=== PATIENT | male | born 1980 | race Caucasian/White ===

== ENCOUNTER → 2022-08-11 | Outpatient (CLI) | payer MEDICAID ==
[2022-08-11 15:24] LABS: BASO # 0.1 10^3/uL (0.0-0.2); BASO % 0.9 % (0.0-1.0); EOS # 0.2 10^3/uL (0.0-0.5); EOS % 3.5 % (0.0-3.0); HEMATOCRIT 51.7 % (42.0-52.0); HEMOGLOBIN 17.5 g/dl (13.5-17.5); LYMPH # 2.2 10^3/uL (1.5-5.0); LYMPH % 31.5 % (24.0-44.0); MEAN CORPUSCULAR HEMOGLOBIN 29.5 pg (27.0-33.0); MEAN CORPUSCULAR HGB CONC 33.8 g/dl (32.0-36.5); MEAN CORPUSCULAR VOLUME 87.2 fl (80.0-96.0); MONO # 0.6 10^3/uL (0.0-0.8); MONO % 8.5 % (2.0-8.0); NEUTROPHILS # 3.8 10^3/uL (1.5-8.5); PLATELET COUNT, AUTOMATED 315 10^3/uL (150-450); RED BLOOD COUNT 5.93 10^6/uL (4.30-6.10); WHITE BLOOD COUNT 6.9 10^3/uL (4.0-10.0)
[2022-08-11 15:54] LABS: ALBUMIN 3.8 G/DL (3.2-5.2); ALKALINE PHOSPHATASE 104 U/L (46-116); ALT/SGPT 117 U/L (7.0-40); AST/SGOT 67 U/L (<34); BILIRUBIN,TOTAL 0.7 MG/DL (0.3-1.2); BLOOD UREA NITROGEN 12 MG/DL (9-23); CALCIUM LEVEL 8.9 MG/DL (8.5-10.1); CARBON DIOXIDE LEVEL 26 MMOL/L (20-31); CHLORIDE LEVEL 104 MMOL/L (98-107); CHOLESTEROL LEVEL 186 MG/DL (<200); CHOLESTEROL RISK RATIO 4.16 (<5); CREATININE FOR GFR 0.86 MG/DL (0.70-1.30); GLOMERULAR FILTRATION RATE > 60.0 (>60); GLUCOSE, FASTING 108 MG/DL (60-100); HDL CHOLESTEROL 44.7 MG/DL (>40); LDL CHOLESTEROL 104.7 MG/DL (<100); NON-HDL-C 141.3 MG/DL; POTASSIUM SERUM 4.1 MMOL/L (3.5-5.1); SODIUM LEVEL 140 MMOL/L (136-145); TOTAL PROTEIN 7.3 G/DL (5.7-8.2); TRIGLYCERIDES LEVEL 183 MG/DL (<150)
[2022-08-11 15:55] LABS: FREE T4 1.16 NG/DL (0.89-1.76); THYROID STIMULATING HORMONE 2.242 uIU/ML (0.55-4.78)
== END ==
LOC: M LAB 14:01
PROVIDERS: ATTEND Student in an Organized Health Care Education/Training Program
DX: Z00.00 Encounter for general adult medical examination without abnormal findings (principal); I10 Essential (primary) hypertension; F41.9 Anxiety disorder, unspecified

== ENCOUNTER → 2022-09-13 | Outpatient (CLI) | payer MEDICAID ==
[2022-09-13 15:08] LABS: BLOOD UREA NITROGEN 12 MG/DL (9-23); CALCIUM LEVEL 9.1 MG/DL (8.5-10.1); CARBON DIOXIDE LEVEL 26 MMOL/L (20-31); CHLORIDE LEVEL 104 MMOL/L (98-107); CREATININE FOR GFR 0.88 MG/DL (0.70-1.30); GLOMERULAR FILTRATION RATE > 60.0 (>60); GLUCOSE, FASTING 119 MG/DL (60-100); POTASSIUM SERUM 4.2 MMOL/L (3.5-5.1); SODIUM LEVEL 136 MMOL/L (136-145)
== END ==
LOC: M LAB 13:53
PROVIDERS: ATTEND Student in an Organized Health Care Education/Training Program
DX: I10 Essential (primary) hypertension (principal); R39.11 Hesitancy of micturition

== ENCOUNTER → 2023-11-02 | Outpatient (CLI) | payer OTHER | LOC: M SLEEP HO 10:57 | PROVIDERS: ATTEND Nurse Practitioner Adult Health | DX: G47.33 Obstructive sleep apnea (adult) (pediatric) (principal) ==

== ENCOUNTER → 2023-11-13 | Outpatient (REF) | payer OTHER, MEDICAID ==
[2023-11-13 17:33] LABS: ALBUMIN 3.9 G/DL (3.2-5.2); ALKALINE PHOSPHATASE 101 U/L (46-116); ALT/SGPT 156 U/L (7.0-40); AST/SGOT 130 U/L (<34); BLOOD UREA NITROGEN 10 MG/DL (9-23); CARBON DIOXIDE LEVEL 28 MMOL/L (20-31); CHLORIDE LEVEL 102 MMOL/L (98-107); CREATININE FOR GFR 0.86 MG/DL (0.70-1.30); GLOMERULAR FILTRATION RATE > 60.0 (>60); GLUCOSE, FASTING 102 MG/DL (60-100); MAGNESIUM LEVEL 2.2 MG/DL (1.8-2.4); POTASSIUM SERUM 4.3 MMOL/L (3.5-5.1); SODIUM LEVEL 135 MMOL/L (136-145); TOTAL PROTEIN 7.7 G/DL (5.7-8.2)
[2023-11-13 17:54] LABS: FOLATE 13.16 NG/ML (>5.4)
[2023-11-13 18:01] LABS: BASO # 0.1 10^3/uL (0.0-0.2); BASO % 0.8 % (0.0-1.0); EOS # 0.4 10^3/uL (0.0-0.5); EOS % 4.3 % (0.0-3.0); HEMATOCRIT 53.2 % (42.0-52.0); HEMOGLOBIN 17.6 g/dl (13.5-17.5); LYMPH # 2.1 10^3/uL (1.5-5.0); LYMPH % 23.9 % (24.0-44.0); MEAN CORPUSCULAR HEMOGLOBIN 29.8 pg (27.0-33.0); MEAN CORPUSCULAR HGB CONC 33.1 g/dl (32.0-36.5); MONO # 0.8 10^3/uL (0.0-0.8); MONO % 9.2 % (2.0-8.0); NEUTROPHILS # 5.4 10^3/uL (1.5-8.5); NEUTROPHILS % 60.9 % (36.0-66.0); PLATELET COUNT, AUTOMATED 286 10^3/uL (150-450); RED BLOOD COUNT 5.91 10^6/uL (4.30-6.10); WHITE BLOOD COUNT 8.8 10^3/uL (4.0-10.0)
== END ==
LOC: M SFHCLERA 11:35
PROVIDERS: ATTEND Physician Assistant
DX: F10.10 Alcohol abuse, uncomplicated (principal)

== ENCOUNTER 2024-01-27 09:05 | Emergency (ER) | payer MEDICAID, OTHER ==
[~2024-01-27] VITALS: Ht 185.4 cm; Wt 139.3 kg
[2024-01-27] MEDS ORDERED: METO200T15 PO (09:16)
[2024-01-27] MEDS ORDERED: OMEP40CA5 PO (09:16)
[2024-01-27] MEDS ORDERED: GABA-1172 PO (09:16)
[2024-01-27] MEDS ORDERED: SUCR1TAB56 PO (09:16)
[2024-01-27 09:59] LABS: BASO # 0.1 10^3/uL (0.0-0.2); BASO % 0.9 % (0.0-1.0); EOS # 0.3 10^3/uL (0.0-0.5); EOS % 2.9 % (0.0-3.0); HEMOGLOBIN 17.4 g/dl (13.5-17.5); LYMPH # 1.9 10^3/uL (1.5-5.0); LYMPH % 20.6 % (24.0-44.0); MEAN CORPUSCULAR HEMOGLOBIN 30.3 pg (27.0-33.0); MEAN CORPUSCULAR HGB CONC 34.1 g/dl (32.0-36.5); MEAN CORPUSCULAR VOLUME 88.7 fl (80.0-96.0); MONO # 0.7 10^3/uL (0.0-0.8); MONO % 8.1 % (2.0-8.0); NEUTROPHILS % 66.5 % (36.0-66.0); PLATELET COUNT, AUTOMATED 314 10^3/uL (150-450); RED BLOOD COUNT 5.75 10^6/uL (4.30-6.10)
[2024-01-27] MEDS: MULTIVITAMINS/MINERALS THERAP 1 TAB PO SCH (10:02)
[2024-01-27] MEDS: FOLIC ACID 1MG TAB PO SCH (10:02)
[2024-01-27] MEDS: THIAMINE 100 MG TAB PO SCH (10:02)
[2024-01-27] MEDS: LORazepam 2 MG TAB PO PRN (10:11)
[2024-01-27 10:19] LABS: INR 1.06; PROTHROMBIN TIME 13.4 SECONDS (12.5-14.5)
[2024-01-27 10:58] LABS: CK-MB VALUE MASS < 1.0 NG/ML (<3.6); CPK CREATINE PHOSPHOKINASE 110 U/L (46-171)
[2024-01-27 11:09] LABS: HEMOGLOBIN A1c 7.5 % (4.0-6.0)
[2024-01-27 11:24] LABS: CK-MB VALUE MASS < 1.0 NG/ML (<3.6)
[2024-01-27 11:55] LABS: LIPASE 50 U/L (12-53)
[2024-01-27 11:59] LABS: ALBUMIN 3.2 G/DL (3.2-5.2); ALKALINE PHOSPHATASE 128 U/L (46-116); ALT/SGPT 152 U/L (7.0-40); AST/SGOT 162 U/L (<34); BILIRUBIN,DIRECT 0.2 MG/DL (<0.4); BILIRUBIN,TOTAL 0.6 MG/DL (0.3-1.2); BLOOD UREA NITROGEN 8 MG/DL (9-23); CARBON DIOXIDE LEVEL 21 MMOL/L (20-31); CHLORIDE LEVEL 105 MMOL/L (98-107); CPK CREATINE PHOSPHOKINASE 90 U/L (46-171); CREATININE FOR GFR 0.59 MG/DL (0.70-1.30); GLOMERULAR FILTRATION RATE > 60.0 (>60); GLUCOSE, FASTING 204 MG/DL (60-100); MAGNESIUM LEVEL 2.2 MG/DL (1.8-2.4); MB/CK RELATIVE INDEX 1.11 (< OR =4); POTASSIUM SERUM 4.9 MMOL/L (3.5-5.1); SODIUM LEVEL 133 MMOL/L (136-145); TOTAL PROTEIN 7.3 G/DL (5.7-8.2)
[2024-01-27] MEDS ORDERED: HOME MED LIST COMPLETE! XX SCH ×2 (12:15)
[2024-01-27] MEDS ORDERED: METF500T13 PO (13:47)
[2024-01-27 14:10] VITALS: BP 155/97; TEMP 98.3; O2SAT 96
== END 2024-01-27 14:21 | disposition home or self-care (01) ==
LOC: M ED 09:05
DX: E11.9 Type 2 diabetes mellitus without complications (principal); I10 Essential (primary) hypertension; F10.130 Alcohol abuse with withdrawal, uncomplicated; Z91.199 Patient's noncompliance with other medical treatment and regimen due to unspecified reason; R00.0 Tachycardia, unspecified; I45.81 Long QT syndrome; F41.9 Anxiety disorder, unspecified; Z79.84 Long term (current) use of oral hypoglycemic drugs; Z79.899 Other long term (current) drug therapy; Z91.040 Latex allergy status; Z91.010 Allergy to peanuts

== ENCOUNTER 2024-02-03 11:41 | Observation (INO) | payer OTHER ==
[~2024-02-03] VITALS: Ht 185.4 cm; Wt 136.0 kg
[~2024-02-03 11:41] MED LIST: GABA-1172 PO; METF500T13 PO; METO200T15 PO; OMEP40CA5 PO; SUCR1TAB56 PO
[2024-02-03 13:25] LABS: BASO # 0.1 10^3/uL (0.0-0.2); BASO % 0.8 % (0.0-1.0); EOS # 0.3 10^3/uL (0.0-0.5); EOS % 3.3 % (0.0-3.0); HEMATOCRIT 47.2 % (42.0-52.0); HEMOGLOBIN 16.3 g/dl (13.5-17.5); LYMPH # 1.4 10^3/uL (1.5-5.0); LYMPH % 17.3 % (24.0-44.0); MEAN CORPUSCULAR HEMOGLOBIN 30.4 pg (27.0-33.0); MEAN CORPUSCULAR HGB CONC 34.5 g/dl (32.0-36.5); MEAN CORPUSCULAR VOLUME 88.1 fl (80.0-96.0); MONO # 0.6 10^3/uL (0.0-0.8); MONO % 7.7 % (2.0-8.0); NEUTROPHILS # 5.5 10^3/uL (1.5-8.5); NEUTROPHILS % 70.1 % (36.0-66.0); PLATELET COUNT, AUTOMATED 282 10^3/uL (150-450); RED BLOOD COUNT 5.36 10^6/uL (4.30-6.10); WHITE BLOOD COUNT 7.9 10^3/uL (4.0-10.0)
[2024-02-03 13:53] LABS: CPK CREATINE PHOSPHOKINASE 187 U/L (46-171)
[2024-02-03 13:54] LABS: ALBUMIN 3.5 G/DL (3.2-5.2); ALKALINE PHOSPHATASE 104 U/L (40-129); ALT/SGPT 215 U/L (7.0-40); AST/SGOT 236 U/L (<34); BILIRUBIN,DIRECT 0.4 MG/DL (<0.4); BILIRUBIN,TOTAL 0.9 MG/DL (0.3-1.2); BLOOD UREA NITROGEN 12 MG/DL (9-23); CARBON DIOXIDE LEVEL 25 MMOL/L (20-31); CHLORIDE LEVEL 102 MMOL/L (98-107); CK-MB VALUE MASS 1.2 NG/ML (<3.6); CREATININE FOR GFR 0.67 MG/DL (0.70-1.30); GLOMERULAR FILTRATION RATE > 60.0 (>60); GLUCOSE, FASTING 126 MG/DL (60-100); MAGNESIUM LEVEL 2.1 MG/DL (1.8-2.4); MB/CK RELATIVE INDEX 0.64 (< OR =4); POTASSIUM SERUM 3.9 MMOL/L (3.5-5.1); SODIUM LEVEL 134 MMOL/L (136-145); TOTAL PROTEIN 7.6 G/DL (5.7-8.2)
[2024-02-03 13:57] LABS: THYROID STIMULATING HORMONE 2.216 uIU/ML (0.55-4.78)
[2024-02-03 13:58] LABS: FREE T4 1.57 NG/DL (0.89-1.76)
[2024-02-03 15:24] LABS: CK-MB VALUE MASS < 1.0 NG/ML (<3.6)
[2024-02-03 15:25] LABS: CPK CREATINE PHOSPHOKINASE 162 U/L (46-171); MB/CK RELATIVE INDEX 0.61 (< OR =4)
[2024-02-03] MEDS ORDERED: METF-839 PO (16:37)
[2024-02-03 16:39] LABS: ETHYL ALCOHOL (ETHANOL) 0.004 % (0.000-0.010)
[2024-02-03] MEDS ORDERED: HOME MED LIST COMPLETE! XX SCH (16:40)
[2024-02-03] MEDS: METOPROLOL TART 50 MG TAB PO ONE (17:10)
[2024-02-03 17:28] LABS: AMPHETAMINES LEVEL URINE NEGATIVE (NEGATIVE); BARBITURATES URINE NEGATIVE (NEGATIVE); BENZODIAZEPINES URINE NEGATIVE (NEGATIVE); COCAINE METABOLITE URINE NEGATIVE (NEGATIVE); METHADONE URINE NEGATIVE (NEGATIVE)
[2024-02-03 17:29] LABS: OPIATES URINE NEGATIVE (NEGATIVE); PHENCYCLIDINE URINE NEGATIVE (NEGATIVE)
[2024-02-03 17:41] LABS: CANNABINOIDS URINE POSITIVE (NEGATIVE)
[2024-02-03] MEDS: GABAPENTIN 300 MG CAP PO ONE (17:53)
[2024-02-03] MEDS ORDERED: LORazepam 2 MG/ML 1ML VIAL IV PRN (19:40)
[2024-02-03] MEDS: FOLIC ACID 1MG TAB PO SCH (19:56)
[2024-02-03] MEDS: LORazepam 2 MG TAB PO PRN (19:57)
[2024-02-03] MEDS: MULTIVITAMINS/MINERALS THERAP 1 TAB PO SCH (19:57)
[2024-02-03] MEDS: THIAMINE 100 MG TAB PO SCH (19:57)
[2024-02-03 22:22] VITALS: BP 149/104; TEMP 97.9; O2SAT 94
[2024-02-03] MEDS: RAMELTEON 8 MG TAB (ROZEREM) PO ONE (23:34)
[2024-02-04 05:51] LABS: HEMATOCRIT 44.9 % (42.0-52.0); HEMOGLOBIN 14.9 g/dl (13.5-17.5); MEAN CORPUSCULAR HEMOGLOBIN 29.8 pg (27.0-33.0); MEAN CORPUSCULAR HGB CONC 33.2 g/dl (32.0-36.5); MEAN CORPUSCULAR VOLUME 89.8 fl (80.0-96.0); PLATELET COUNT, AUTOMATED 254 10^3/uL (150-450); WHITE BLOOD COUNT 7.7 10^3/uL (4.0-10.0)
[2024-02-04 06:22] LABS: ALBUMIN 3.1 G/DL (3.2-5.2); ALKALINE PHOSPHATASE 93 U/L (40-129); ALT/SGPT 198 U/L (7.0-40); AST/SGOT 214 U/L (<34); BLOOD UREA NITROGEN 11 MG/DL (9-23); CALCIUM LEVEL 9.4 MG/DL (8.5-10.1); CARBON DIOXIDE LEVEL 27 MMOL/L (20-31); CHLORIDE LEVEL 103 MMOL/L (98-107); CREATININE FOR GFR 0.85 MG/DL (0.70-1.30); GLOMERULAR FILTRATION RATE > 60.0 (>60); GLUCOSE, FASTING 98 MG/DL (60-100); POTASSIUM SERUM 3.7 MMOL/L (3.5-5.1); SODIUM LEVEL 137 MMOL/L (136-145); TOTAL PROTEIN 6.9 G/DL (5.7-8.2)
[2024-02-04 06:23] VITALS: BP 149/104; TEMP 97.7; O2SAT 95
[2024-02-04] MEDS: ENOXAPARIN 40MG/0.4ML SYRINGE (J1650 PER 10MG) SC SCH (08:41)
[2024-02-04] MEDS: GABAPENTIN 300 MG CAP PO SCH (10:55)
[2024-02-04 10:56] VITALS: BP 149/114
[2024-02-04] MEDS: METOPROLOL SUCC (TopROL XL) 100MG *XL* TAB PO SCH (10:56)
[2024-02-04] MEDS: SUCRALFATE 1 GM TAB PO SCH (10:56)
[2024-02-04] MEDS: FLUZONE VACCINE TRIVALENT PF(2024-25) 0.5ML SYRINGE IM.IMMUN ONE (11:05)
[2024-02-04 12:00] VITALS: BP 142/98; TEMP 97.7; O2SAT 97
[2024-02-04] MEDS ORDERED: METO1TAB33 PO (13:33)
[2024-02-04] MEDS ORDERED: Multivitamins PO (13:33)
[2024-02-04] MEDS ORDERED: FOLI1TAB11 PO (13:33)
[2024-02-04] MEDS ORDERED: THIA100TA PO (13:33)
[2024-02-04] MEDS ORDERED: FLEC50HA PO (14:04)
[2024-02-05] MEDS ORDERED: SUCRALFATE 1 GM TAB PO SCH (09:00)
== END 2024-02-04 15:00 | disposition home or self-care (01) ==
LOC: M ED 11:41 → M ED INP 11:42 → M MSPAV 22:16
PROVIDERS: ADMIT Student in an Organized Health Care Education/Training Program; ATTEND Student in an Organized Health Care Education/Training Program
DX: I47.10 Supraventricular tachycardia, unspecified (principal); I49.3 Ventricular premature depolarization; R79.89 Other specified abnormal findings of blood chemistry; R55 Syncope and collapse; I10 Essential (primary) hypertension; E66.9 Obesity, unspecified; R73.03 Prediabetes; R06.02 Shortness of breath; F41.9 Anxiety disorder, unspecified; F10.90 Alcohol use, unspecified, uncomplicated; Z91.018 Allergy to other foods; Z91.040 Latex allergy status; Z91.048 Other nonmedicinal substance allergy status; Z79.899 Other long term (current) drug therapy; Z79.84 Long term (current) use of oral hypoglycemic drugs; Z23 Encounter for immunization

== ENCOUNTER 2024-05-03 14:49 | Inpatient (IN) | payer MEDICAID, OTHER ==
[~2024-05-03] VITALS: Ht 185.4 cm; Wt 136.7 kg
[~2024-05-03 14:49] MED LIST changes: +FLEC50HA PO; +FOLI1TAB11 PO; +METF-839 PO; +METO1TAB33 PO; +Multivitamins PO; +THIA100TA PO
[2024-05-03 16:16] LABS: BASO # 0.1 10^3/uL (0.0-0.2); BASO % 1.1 % (0.0-1.0); EOS # 0.3 10^3/uL (0.0-0.5); EOS % 4.7 % (0.0-3.0); HEMATOCRIT 48.2 % (42.0-52.0); HEMOGLOBIN 16.8 g/dl (13.5-17.5); LYMPH # 1.9 10^3/uL (1.5-5.0); LYMPH % 29.4 % (24.0-44.0); MEAN CORPUSCULAR HEMOGLOBIN 29.9 pg (27.0-33.0); MEAN CORPUSCULAR HGB CONC 34.9 g/dl (32.0-36.5); MEAN CORPUSCULAR VOLUME 85.9 fl (80.0-96.0); MONO # 0.6 10^3/uL (0.0-0.8); MONO % 8.8 % (2.0-8.0); NEUTROPHILS # 3.7 10^3/uL (1.5-8.5); NEUTROPHILS % 55.4 % (36.0-66.0); PLATELET COUNT, AUTOMATED 279 10^3/uL (150-450); RED BLOOD COUNT 5.61 10^6/uL (4.30-6.10); WHITE BLOOD COUNT 6.6 10^3/uL (4.0-10.0)
[2024-05-03 16:34] LABS: PARTIAL THROMBOPLASTIN TIME 27.1 SECONDS (24.8-34.2); PROTHROMBIN TIME 13.5 SECONDS (12.5-14.5)
[2024-05-03 16:41] LABS: ETHYL ALCOHOL (ETHANOL) 0.088 % (0.000-0.010)
[2024-05-03 16:49] LABS: ALBUMIN 3.4 G/DL (3.2-5.2); ALKALINE PHOSPHATASE 112 U/L (40-129); ALT/SGPT 221 U/L (7.0-40); AST/SGOT 185 U/L (<34); BILIRUBIN,DIRECT 0.3 MG/DL (<0.4); BILIRUBIN,TOTAL 0.8 MG/DL (0.3-1.2); BLOOD UREA NITROGEN < 5 MG/DL (9-23); CALCIUM LEVEL 8.6 MG/DL (8.5-10.1); CARBON DIOXIDE LEVEL 23 MMOL/L (20-31); CHLORIDE LEVEL 99 MMOL/L (98-107); CREATININE FOR GFR 0.63 MG/DL (0.70-1.30); GLOMERULAR FILTRATION RATE > 60.0 (>60); GLUCOSE, FASTING 189 MG/DL (60-100); POTASSIUM SERUM 3.7 MMOL/L (3.5-5.1); SODIUM LEVEL 136 MMOL/L (136-145); TOTAL PROTEIN 7.8 G/DL (5.7-8.2)
[2024-05-03] MEDS: LORazepam 2 MG TAB PO PRN ×2 (17:24→22:22)
[2024-05-03] MEDS: ONDANSETRON 4MG 2ML VIAL IV PRN (17:24)
[2024-05-03] MEDS ORDERED: ISOVUE-370 76% 100ML VIAL As Ordered ONE (17:58)
[2024-05-03] MEDS ORDERED: LISI10TA22 PO (20:09)
[2024-05-03] MEDS ORDERED: FOLI1TAB11 PO (20:10)
[2024-05-03] MEDS ORDERED: HOME MED LIST COMPLETE! XX SCH (20:15)
[2024-05-03] MEDS: THIAMINE 100 MG TAB PO SCH (20:59)
[2024-05-03 21:06] LABS: MAGNESIUM LEVEL 2.2 MG/DL (1.8-2.4)
[2024-05-03] MEDS ORDERED: ONDANSETRON 4MG 2ML VIAL IV PRN (21:35)
[2024-05-03] MEDS ORDERED: chlordiazePOXIDE 25 MG CAP PO SCH (22:35)
[2024-05-03] MEDS ORDERED: PILL CUTTER 1 EACH XX PRN (23:15)
[2024-05-03] MEDS: PANTOPRAZOLE 40MG VIAL IV ONE (23:59)
[2024-05-03] MEDS: LR 1,000 ML IV ONE (23:59)
[2024-05-03] MEDS: LORazepam 1 MG TAB PO SCH (23:59)
[2024-05-04 06:51] LABS: HEMATOCRIT 48.3 % (42.0-52.0); HEMOGLOBIN 16.4 g/dl (13.5-17.5); MEAN CORPUSCULAR HEMOGLOBIN 29.3 pg (27.0-33.0); MEAN CORPUSCULAR VOLUME 86.4 fl (80.0-96.0); PLATELET COUNT, AUTOMATED 237 10^3/uL (150-450); RED BLOOD COUNT 5.59 10^6/uL (4.30-6.10); WHITE BLOOD COUNT 7.2 10^3/uL (4.0-10.0)
[2024-05-04 07:04] LABS: ALBUMIN 3.1 G/DL (3.2-5.2); ALKALINE PHOSPHATASE 106 U/L (40-129); ALT/SGPT 189 U/L (7.0-40); AST/SGOT 152 U/L (<34); BILIRUBIN,TOTAL 1.5 MG/DL (0.3-1.2); BLOOD UREA NITROGEN 8 MG/DL (9-23); CALCIUM LEVEL 9.1 MG/DL (8.5-10.1); CARBON DIOXIDE LEVEL 29 MMOL/L (20-31); CHLORIDE LEVEL 101 MMOL/L (98-107); CREATININE FOR GFR 0.77 MG/DL (0.70-1.30); GLOMERULAR FILTRATION RATE > 60.0 (>60); GLUCOSE, FASTING 125 MG/DL (60-100); POTASSIUM SERUM 3.9 MMOL/L (3.5-5.1); SODIUM LEVEL 139 MMOL/L (136-145)
[2024-05-04] MEDS ORDERED: KETOROLAC 30 MG/ML 1ML VIAL IV PRN (07:45)
[2024-05-04] MEDS: SUCRALFATE 1 GM TAB PO SCH (08:12)
[2024-05-04] MEDS: MULTIVITAMINS/MINERALS THERAP 1 TAB PO SCH (08:13)
[2024-05-04] MEDS: PANTOPRAZOLE 40MG VIAL IV SCH (08:13)
[2024-05-04] MEDS: THIAMINE 100 MG TAB PO SCH (08:13)
[2024-05-04] MEDS: FOLIC ACID 1MG TAB PO SCH (08:14)
[2024-05-04] MEDS: MAGNESIUM OXIDE 400MG TAB (MAG-OX) PO SCH (08:14)
[2024-05-04] MEDS: ENOXAPARIN 40MG/0.4ML SYRINGE (J1650 PER 10MG) SC SCH (08:14)
[2024-05-04] MEDS ORDERED: FOLIC ACID 1MG TAB PO SCH (09:00)
[2024-05-04] MEDS ORDERED: MULTIVITAMINS/MINERALS THERAP 1 TAB PO SCH (09:00)
[2024-05-04] MEDS ORDERED: PANTOPRAZOLE 40MG VIAL IV SCH (09:00)
[2024-05-04] MEDS ORDERED: THIAMINE 200MG 2ML VIAL IM SCH (09:00)
[2024-05-04] MEDS ORDERED: THIAMINE 200MG 2ML VIAL IV SCH (09:00)
[2024-05-04] MEDS: METOPROLOL SUCC (TopROL XL) 100MG *XL* TAB PO SCH (12:17)
[2024-05-04] MEDS: GABAPENTIN 300 MG CAP PO SCH (16:31)
[2024-05-04] MEDS ORDERED: DEXTROSE 50% 50ML SYRINGE IV PRN (19:40)
[2024-05-04] MEDS ORDERED: GLUCAGON INJ 1MG VIAL SC PRN (19:40)
[2024-05-04] MEDS ORDERED: GLUCOSE 4 GM CHEW PO PRN (19:40)
[2024-05-04] MEDS: INSULIN LISPRO (NovoLOG) PER UNIT SC SCH (20:30)
[2024-05-05] MEDS: LORazepam 1 MG TAB PO SCH (00:09)
[2024-05-05 07:07] LABS: BASO # 0.1 10^3/uL (0.0-0.2); BASO % 0.7 % (0.0-1.0); EOS # 0.5 10^3/uL (0.0-0.5); EOS % 6.6 % (0.0-3.0); HEMATOCRIT 49.7 % (42.0-52.0); HEMOGLOBIN 16.8 g/dl (13.5-17.5); LYMPH % 26.5 % (24.0-44.0); MEAN CORPUSCULAR HEMOGLOBIN 29.5 pg (27.0-33.0); MEAN CORPUSCULAR HGB CONC 33.8 g/dl (32.0-36.5); MEAN CORPUSCULAR VOLUME 87.3 fl (80.0-96.0); MONO # 0.7 10^3/uL (0.0-0.8); MONO % 8.7 % (2.0-8.0); NEUTROPHILS # 4.3 10^3/uL (1.5-8.5); PLATELET COUNT, AUTOMATED 239 10^3/uL (150-450); RED BLOOD COUNT 5.69 10^6/uL (4.30-6.10); WHITE BLOOD COUNT 7.6 10^3/uL (4.0-10.0)
[2024-05-05 07:37] LABS: ALBUMIN 3.2 G/DL (3.2-5.2); ALKALINE PHOSPHATASE 108 U/L (40-129); ALT/SGPT 157 U/L (7.0-40); AST/SGOT 116 U/L (<34); BILIRUBIN,TOTAL 1.6 MG/DL (0.3-1.2); BLOOD UREA NITROGEN 12 MG/DL (9-23); CALCIUM LEVEL 9.2 MG/DL (8.5-10.1); CARBON DIOXIDE LEVEL 27 MMOL/L (20-31); CHLORIDE LEVEL 100 MMOL/L (98-107); CREATININE FOR GFR 0.84 MG/DL (0.70-1.30); GLOMERULAR FILTRATION RATE > 60.0 (>60); GLUCOSE, FASTING 120 MG/DL (60-100); MAGNESIUM LEVEL 2.4 MG/DL (1.8-2.4); POTASSIUM SERUM 4.1 MMOL/L (3.5-5.1); SODIUM LEVEL 137 MMOL/L (136-145); TOTAL PROTEIN 7.2 G/DL (5.7-8.2)
[2024-05-05] MEDS: INSULIN LISPRO (NovoLOG) PER UNIT SC SCH (08:00)
[2024-05-05 14:20] VITALS: BP 138/92; TEMP 97.9; O2SAT 95
[2024-05-05 19:43] VITALS: BP 120/76; TEMP 99; O2SAT 96
[2024-05-05 22:12] VITALS: BP 120/76
[2024-05-06] MEDS: LORazepam 1 MG TAB PO SCH (02:13)
[2024-05-06 02:19] VITALS: BP 140/90; TEMP 98.3; O2SAT 100
[2024-05-06 06:27] VITALS: BP 139/87; TEMP 98.3; O2SAT 96
[2024-05-06 06:38] VITALS: BP 139/87
[2024-05-06 07:19] LABS: BASO # 0.1 10^3/uL (0.0-0.2); BASO % 0.7 % (0.0-1.0); EOS # 0.6 10^3/uL (0.0-0.5); HEMOGLOBIN 16.1 g/dl (13.5-17.5); LYMPH # 1.9 10^3/uL (1.5-5.0); LYMPH % 26.2 % (24.0-44.0); MEAN CORPUSCULAR HEMOGLOBIN 29.5 pg (27.0-33.0); MEAN CORPUSCULAR HGB CONC 33.5 g/dl (32.0-36.5); MEAN CORPUSCULAR VOLUME 87.9 fl (80.0-96.0); MONO # 0.6 10^3/uL (0.0-0.8); MONO % 7.9 % (2.0-8.0); NEUTROPHILS # 4.1 10^3/uL (1.5-8.5); NEUTROPHILS % 56.8 % (36.0-66.0); PLATELET COUNT, AUTOMATED 225 10^3/uL (150-450); RED BLOOD COUNT 5.46 10^6/uL (4.30-6.10); WHITE BLOOD COUNT 7.2 10^3/uL (4.0-10.0)
[2024-05-06 07:45] LABS: ALBUMIN 3.3 G/DL (3.2-5.2); ALKALINE PHOSPHATASE 108 U/L (40-129); ALT/SGPT 150 U/L (7.0-40); AST/SGOT 136 U/L (<34); BILIRUBIN,TOTAL 1.2 MG/DL (0.3-1.2); BLOOD UREA NITROGEN 15 MG/DL (9-23); CALCIUM LEVEL 8.7 MG/DL (8.5-10.1); CARBON DIOXIDE LEVEL 27 MMOL/L (20-31); CHLORIDE LEVEL 102 MMOL/L (98-107); GLOMERULAR FILTRATION RATE > 60.0 (>60); GLUCOSE, FASTING 119 MG/DL (60-100); MAGNESIUM LEVEL 2.3 MG/DL (1.8-2.4); POTASSIUM SERUM 4.6 MMOL/L (3.5-5.1); SODIUM LEVEL 139 MMOL/L (136-145); TOTAL PROTEIN 7.2 G/DL (5.7-8.2)
[2024-05-06 08:00] VITALS: BP_SYST 117; BP_SYST 135; BP_DIAS 66; BP_DIAS 87; TEMP 98.7; O2SAT 97
[2024-05-06 08:20] VITALS: BP 139/87
[2024-05-06] MEDS ORDERED: LORazepam PO (10:33)
[2024-05-06] MEDS ORDERED: FOLI1TAB11 PO (10:33)
[2024-05-06] MEDS ORDERED: PANT40TA29 PO (10:33)
[2024-05-06] MEDS ORDERED: THIA100TA PO (10:33)
[2024-05-06] MEDS ORDERED: SUCR1TA PO (10:33)
[2024-05-06] MEDS ORDERED: ATIV1TAB10 PO (10:36)
[2024-05-06 13:00] VITALS: BP 150/88; TEMP 98.5; O2SAT 99
[2024-05-07] MEDS ORDERED: LORazepam 0.5 MG TAB PO SCH (06:00)
[2024-05-08] MEDS ORDERED: LORazepam 0.5 MG TAB PO SCH (21:00)
== END 2024-05-06 13:15 | disposition home or self-care (01) | DRG 241 ==
LOC: M ED 14:49 → M ED INP 14:50 → OBSVTOIN 05-05 10:53 → M MS4PR 05-05 14:20
PROVIDERS: ADMIT Student in an Organized Health Care Education/Training Program; ATTEND Internal Medicine Nephrology
DX: K29.20 Alcoholic gastritis without bleeding (principal); Z68.41 Body mass index [BMI] 40.0-44.9, adult; R16.0 Hepatomegaly, not elsewhere classified; E66.01 Morbid (severe) obesity due to excess calories; K70.0 Alcoholic fatty liver; I10 Essential (primary) hypertension; F10.239 Alcohol dependence with withdrawal, unspecified; R73.03 Prediabetes; F12.10 Cannabis abuse, uncomplicated; F41.9 Anxiety disorder, unspecified; Z91.018 Allergy to other foods; Z91.040 Latex allergy status; Z91.048 Other nonmedicinal substance allergy status

== ENCOUNTER 2024-07-27 07:06 | Inpatient (IN) | payer MEDICAID, OTHER ==
[~2024-07-27] VITALS: Ht 185.4 cm; Wt 135.9 kg
[~2024-07-27 07:06] MED LIST changes: +ATIV1TAB10 PO; +LISI10TA22 PO; +LORazepam PO; +PANT40TA29 PO; +SUCR1TA PO
[2024-07-27] MEDS ORDERED: LORazepam 2 MG TAB PO PRN (07:40)
[2024-07-27] MEDS: LORazepam 2 MG/ML 1ML VIAL IV STA ×3 (07:53→10:40)
[2024-07-27 08:00] LABS: HEMATOCRIT 50.4 % (42.0-52.0); HEMOGLOBIN 17.4 g/dl (13.5-17.5); MEAN CORPUSCULAR HEMOGLOBIN 29.5 pg (27.0-33.0); MEAN CORPUSCULAR HGB CONC 34.5 g/dl (32.0-36.5); MEAN CORPUSCULAR VOLUME 85.6 fl (80.0-96.0); PLATELET COUNT, AUTOMATED 301 10^3/uL (150-450); RED BLOOD COUNT 5.89 10^6/uL (4.30-6.10); WHITE BLOOD COUNT 8.4 10^3/uL (4.0-10.0)
[2024-07-27] MEDS ORDERED: SEMA1PEN2 INJ (08:04)
[2024-07-27 08:19] LABS: ETHYL ALCOHOL (ETHANOL) 0.055 % (0.000-0.010)
[2024-07-27 08:21] LABS: ALBUMIN 3.5 G/DL (3.2-5.2); ALKALINE PHOSPHATASE 134 U/L (40-129); ALT/SGPT 98 U/L (7.0-40); AST/SGOT 76 U/L (<34); BILIRUBIN,DIRECT 0.3 MG/DL (<0.4); BILIRUBIN,TOTAL 0.7 MG/DL (0.3-1.2); BLOOD UREA NITROGEN 8 MG/DL (9-23); CARBON DIOXIDE LEVEL 23 MMOL/L (20-31); CHLORIDE LEVEL 99 MMOL/L (98-107); CREATININE FOR GFR 0.62 MG/DL (0.70-1.30); GLOMERULAR FILTRATION RATE > 90.0 (>60); GLUCOSE, FASTING 256 MG/DL (60-100); SALICYLATE LEVEL < 3.0 MG/DL (<30); SODIUM LEVEL 135 MMOL/L (136-145); TOTAL PROTEIN 7.9 G/DL (5.7-8.2)
[2024-07-27 08:23] LABS: THYROID STIMULATING HORMONE 2.245 uIU/ML (0.55-4.78)
[2024-07-27 08:34] LABS: AMPHETAMINES LEVEL URINE NEGATIVE (NEGATIVE); BARBITURATES URINE NEGATIVE (NEGATIVE)
[2024-07-27 08:35] LABS: BENZODIAZEPINES URINE NEGATIVE (NEGATIVE); COCAINE METABOLITE URINE NEGATIVE (NEGATIVE); METHADONE URINE NEGATIVE (NEGATIVE); OPIATES URINE NEGATIVE (NEGATIVE); PHENCYCLIDINE URINE NEGATIVE (NEGATIVE)
[2024-07-27 08:42] LABS: CANNABINOIDS URINE POSITIVE (NEGATIVE)
[2024-07-27] MEDS: MULTIVITAMINS/MINERALS THERAP 1 TAB PO SCH (09:33)
[2024-07-27] MEDS: THIAMINE 100 MG TAB PO SCH (09:34)
[2024-07-27] MEDS: FOLIC ACID 1MG TAB PO SCH (09:34)
[2024-07-27 10:36] LABS: MAGNESIUM LEVEL 2.1 MG/DL (1.8-2.4)
[2024-07-27] MEDS ORDERED: HOME MED LIST COMPLETE! XX SCH (10:40)
[2024-07-27] MEDS ORDERED: DEXTROSE 50% 50ML SYRINGE IV PRN (11:35)
[2024-07-27] MEDS ORDERED: GLUCOSE 4 GM CHEW PO PRN (11:35)
[2024-07-27] MEDS ORDERED: ONDANSETRON 4MG 2ML VIAL IV PRN (11:35)
[2024-07-27] MEDS ORDERED: GLUCAGON INJ 1MG VIAL SC PRN (11:35)
[2024-07-27] MEDS: INSULIN LISPRO (NovoLOG) PER UNIT SC SCH ×2 (12:00→21:00)
[2024-07-27 12:08] LABS: LIPASE 43 U/L (12-53)
[2024-07-27 12:30] LABS: HEPATITIS B SURFACE ANTIGEN NEGATIVE (NEGATIVE)
[2024-07-27] MEDS: PANTOPRAZOLE 40MG VIAL IV SCH (12:38)
[2024-07-27] MEDS: METOPROLOL TART 50 MG TAB PO SCH (12:38)
[2024-07-27] MEDS: NS (Normal Saline) 0.9% 1,000 ML IV SCH (12:39)
[2024-07-27 12:51] LABS: HEPATITIS C VIRUS ABY INDEX 0.05 INDEX (<0.8)
[2024-07-27 12:52] LABS: HEPATITIS B CORE ANTIBODY IGM NEGATIVE (NEGATIVE)
[2024-07-27 12:59] LABS: HEMOGLOBIN A1c 6.4 % (4.0-6.0)
[2024-07-27] MEDS: OXAZEPAM 15MG CAP PO SCH ×2 (14:06→17:32)
[2024-07-27] MEDS: MULTIVITAMIN -ADULT INJECTION 10 ML, THIAMINE INJection 100 MG, FOLIC ACID 1 MG in NS (... IV ONE (14:07)
[2024-07-27 15:07] VITALS: BP 166/102; TEMP 97.6; O2SAT 94
[2024-07-27 15:13] VITALS: BP 166/102
[2024-07-27] MEDS: LORazepam 2 MG TAB PO PRN (15:27)
[2024-07-27 17:40] VITALS: BP 157/108; TEMP 98.9; O2SAT 98
[2024-07-27 19:40] VITALS: BP 151/102; TEMP 98.6; O2SAT 96
[2024-07-27 20:00] VITALS: BP 151/102
[2024-07-28] VITALS (11 sets, daily range): BP systolic 115–146; BP diastolic 73–97; TEMP 98.1–98.9; O2SAT 95–97
[2024-07-28] MEDS: THIAMINE 100 MG TAB PO SCH (00:57)
[2024-07-28 04:58] LABS: HEMATOCRIT 46.3 % (42.0-52.0); HEMOGLOBIN 15.9 g/dl (13.5-17.5); MEAN CORPUSCULAR HEMOGLOBIN 29.8 pg (27.0-33.0); MEAN CORPUSCULAR HGB CONC 34.3 g/dl (32.0-36.5); MEAN CORPUSCULAR VOLUME 86.7 fl (80.0-96.0); PLATELET COUNT, AUTOMATED 232 10^3/uL (150-450); RED BLOOD COUNT 5.34 10^6/uL (4.30-6.10); WHITE BLOOD COUNT 7.8 10^3/uL (4.0-10.0)
[2024-07-28 05:20] LABS: ALBUMIN 3.1 G/DL (3.2-5.2); ALKALINE PHOSPHATASE 115 U/L (40-129); ALT/SGPT 77 U/L (7.0-40); AST/SGOT 56 U/L (<34); BILIRUBIN,TOTAL 1.6 MG/DL (0.3-1.2); BLOOD UREA NITROGEN 13 MG/DL (9-23); CALCIUM LEVEL 8.7 MG/DL (8.5-10.1); CARBON DIOXIDE LEVEL 28 MMOL/L (20-31); CHLORIDE LEVEL 99 MMOL/L (98-107); CREATININE FOR GFR 0.72 MG/DL (0.70-1.30); GLOMERULAR FILTRATION RATE > 90.0 (>60); GLUCOSE, FASTING 133 MG/DL (60-100); POTASSIUM SERUM 4.1 MMOL/L (3.5-5.1); SODIUM LEVEL 135 MMOL/L (136-145); TOTAL PROTEIN 6.8 G/DL (5.7-8.2)
[2024-07-28] MEDS: METOPROLOL SUCC (TopROL XL) 100MG *XL* TAB PO SCH (08:42)
[2024-07-28] MEDS: MULTIVITAMINS/MINERALS THERAP 1 TAB PO SCH (08:43)
[2024-07-28] MEDS: FOLIC ACID 1MG TAB PO SCH (08:43)
[2024-07-28] MEDS: ENOXAPARIN 40MG/0.4ML SYRINGE (J1650 PER 10MG) SC SCH (08:44)
[2024-07-28] MEDS: OXAZEPAM 15MG CAP PO SCH (14:22)
[2024-07-29] VITALS (7 sets, daily range): BP systolic 125–139; BP diastolic 83–95; TEMP 97.5–98.9; O2SAT 95–97
[2024-07-29 05:48] LABS: BASO # 0.1 10^3/uL (0.0-0.2); BASO % 1.1 % (0.0-1.0); EOS # 0.5 10^3/uL (0.0-0.5); HEMATOCRIT 46.1 % (42.0-52.0); HEMOGLOBIN 15.5 g/dl (13.5-17.5); LYMPH # 1.6 10^3/uL (1.5-5.0); LYMPH % 22.4 % (24.0-44.0); MEAN CORPUSCULAR HEMOGLOBIN 29.5 pg (27.0-33.0); MEAN CORPUSCULAR HGB CONC 33.6 g/dl (32.0-36.5); MEAN CORPUSCULAR VOLUME 87.6 fl (80.0-96.0); MONO # 0.5 10^3/uL (0.0-0.8); NEUTROPHILS # 4.5 10^3/uL (1.5-8.5); NEUTROPHILS % 61.7 % (36.0-66.0); PLATELET COUNT, AUTOMATED 207 10^3/uL (150-450); RED BLOOD COUNT 5.26 10^6/uL (4.30-6.10); WHITE BLOOD COUNT 7.3 10^3/uL (4.0-10.0)
[2024-07-29 06:11] LABS: BLOOD UREA NITROGEN 15 MG/DL (9-23); CALCIUM LEVEL 8.6 MG/DL (8.5-10.1); CARBON DIOXIDE LEVEL 28 MMOL/L (20-31); CHLORIDE LEVEL 102 MMOL/L (98-107); GLOMERULAR FILTRATION RATE > 90.0 (>60); GLUCOSE, FASTING 139 MG/DL (60-100); POTASSIUM SERUM 3.8 MMOL/L (3.5-5.1); SODIUM LEVEL 138 MMOL/L (136-145)
[2024-07-29] MEDS: chlordiazePOXIDE 25 MG CAP PO SCH (09:19)
[2024-07-29] MEDS ORDERED: NALT50TA4 PO (09:39)
[2024-07-29] MEDS ORDERED: CHLO25CA10 PO (09:39)
[2024-07-29] MEDS ORDERED: PROT1TAB2 PO (09:39)
== END 2024-07-29 11:45 | disposition home or self-care (01) | DRG 775 ==
LOC: M ED 07:06 → M ED INP 11:28 → M PCU 14:56
PROVIDERS: ADMIT Internal Medicine; ATTEND Internal Medicine
DX: F10.239 Alcohol dependence with withdrawal, unspecified (principal); E66.01 Morbid (severe) obesity due to excess calories; K76.0 Fatty (change of) liver, not elsewhere classified; I10 Essential (primary) hypertension; E11.9 Type 2 diabetes mellitus without complications; R74.01 Elevation of levels of liver transaminase levels; K29.20 Alcoholic gastritis without bleeding; Z79.899 Other long term (current) drug therapy; Z91.018 Allergy to other foods; Z91.048 Other nonmedicinal substance allergy status; Z91.040 Latex allergy status

== ENCOUNTER 2024-10-17 09:34 | Inpatient (IN) | payer MEDICAID, OTHER ==
[~2024-10-17] VITALS: Ht 182.9 cm; Wt 139.5 kg
[~2024-10-17 09:34] MED LIST changes: +CHLO25CA10 PO; +NALT50TA4 PO; +PROT1TAB2 PO; +SEMA1PEN2 INJ
[2024-10-17 10:19] LABS: PLATELET COUNT, AUTOMATED 262 10^3/uL (150-450)
[2024-10-17] MEDS: FOLIC ACID 1 MG TAB PO SCH (10:25)
[2024-10-17] MEDS: THIAMINE 100 MG TAB PO SCH (10:26)
[2024-10-17] MEDS: MULTIVITAMINS/MINERALS THERAP 1 TAB PO SCH (10:26)
[2024-10-17 10:47] LABS: ETHYL ALCOHOL (ETHANOL) 0.159 % (0.000-0.010)
[2024-10-17 10:48] LABS: SALICYLATE LEVEL < 3.0 MG/DL (<30)
[2024-10-17 10:49] LABS: ALT/SGPT 238 U/L (7.0-40); AST/SGOT 176 U/L (<34); CALCIUM LEVEL 8.7 MG/DL (8.5-10.1); CARBON DIOXIDE LEVEL 23 MMOL/L (20-31); CHLORIDE LEVEL 93 MMOL/L (98-107); CREATININE FOR GFR 0.65 MG/DL (0.70-1.30); GLOMERULAR FILTRATION RATE > 90.0 (>60); POTASSIUM SERUM 3.8 MMOL/L (3.5-5.1); SODIUM LEVEL 132 MMOL/L (136-145)
[2024-10-17] MEDS ORDERED: METF500T13 PO (11:08)
[2024-10-17] MEDS ORDERED: HYDR-3490 PO (11:08)
[2024-10-17 11:36] LABS: AMPHETAMINES LEVEL URINE NEGATIVE (NEGATIVE); BARBITURATES URINE NEGATIVE (NEGATIVE); COCAINE METABOLITE URINE NEGATIVE (NEGATIVE); METHADONE URINE NEGATIVE (NEGATIVE); OPIATES URINE NEGATIVE (NEGATIVE); PHENCYCLIDINE URINE NEGATIVE (NEGATIVE)
[2024-10-17 11:42] LABS: BENZODIAZEPINES URINE POSITIVE (NEGATIVE); CANNABINOIDS URINE POSITIVE (NEGATIVE)
[2024-10-17] MEDS ORDERED: HOME MED LIST COMPLETE! XX SCH (12:50)
[2024-10-17] MEDS ORDERED: GLUCAGON INJ 1 MG VIAL SC PRN (14:45)
[2024-10-17] MEDS ORDERED: DEXTROSE 50% 50 ML SYRINGE IV PRN (14:45)
[2024-10-17] MEDS ORDERED: GLUCOSE 4 GM CHEW PO PRN (14:45)
[2024-10-17] MEDS: OXAZEPAM 15MG CAP PO SCH (15:11)
[2024-10-17] MEDS: GABAPENTIN 300 MG CAP PO SCH (15:38)
[2024-10-17 15:56] LABS: INR 0.96
[2024-10-17] MEDS: INSULIN LISPRO (NovoLOG) PER UNIT SC SCH ×2 (17:30→21:00)
[2024-10-17] MEDS: PANTOPRAZOLE 40MG VIAL IV SCH (18:00)
[2024-10-17] MEDS: OLANZapine 5 MG TAB PO PRN (18:02)
[2024-10-17 18:30] VITALS: BP_SYST 160; BP_SYST 161; BP_DIAS 117; TEMP 98.4; O2SAT 96
[2024-10-17] MEDS: MULTIVITAMIN -ADULT INJECTION 10 ML, THIAMINE INJection 100 MG, FOLIC ACID 1 MG in NS (... IV ONE (19:01)
[2024-10-17] MEDS: **hydrALAZINE HCL** 25 MG TAB PO SCH (19:02)
[2024-10-17] MEDS: ONDANSETRON 4MG 2ML VIAL IV PRN (19:03)
[2024-10-17] MEDS: SYMBICORT 80/4.5MCG INHALER 6GM INH SCH (19:57)
[2024-10-17] MEDS: ALBUTEROL 90 MCG/ACT 8 GM HFA INHALER INH PRN (19:57)
[2024-10-17] MEDS: SUCRALFATE SUSP 1GM/10ML UD PO SCH (20:44)
[2024-10-17] MEDS: HEPARIN SOD 5000 UNITS/ML 1 ML VIAL/SYRINGE SC SCH (20:45)
[2024-10-17] MEDS ORDERED: PANTOPRAZOLE 40MG TAB PO SCH (21:00)
[2024-10-17 21:20] VITALS: BP 158/106; TEMP 98.8; O2SAT 96
[2024-10-17 22:30] VITALS: BP 158/106
[2024-10-18 05:28] VITALS: BP 153/96; TEMP 98.2; O2SAT 96
[2024-10-18 05:58] LABS: BASO # 0.1 10^3/uL (0.0-0.2); BASO % 0.9 % (0.0-1.0); EOS # 0.6 10^3/uL (0.0-0.5); EOS % 7.9 % (0.0-3.0); LYMPH # 2.1 10^3/uL (1.5-5.0); LYMPH % 28.0 % (24.0-44.0); MONO # 0.6 10^3/uL (0.0-0.8); MONO % 7.9 % (2.0-8.0); NEUTROPHILS # 4.1 10^3/uL (1.5-8.5); NEUTROPHILS % 53.9 % (36.0-66.0); PLATELET COUNT, AUTOMATED 226 10^3/uL (150-450)
[2024-10-18 06:00] VITALS: BP 153/107
[2024-10-18 06:18] LABS: ALT/SGPT 187 U/L (7.0-40); AST/SGOT 148 U/L (<34); CALCIUM LEVEL 8.4 MG/DL (8.5-10.1); CARBON DIOXIDE LEVEL 29 MMOL/L (20-31); CHLORIDE LEVEL 97 MMOL/L (98-107); CREATININE FOR GFR 0.86 MG/DL (0.70-1.30); GLOMERULAR FILTRATION RATE > 90.0 (>60); MAGNESIUM LEVEL 2.2 MG/DL (1.8-2.4); POTASSIUM SERUM 4.2 MMOL/L (3.5-5.1); SODIUM LEVEL 137 MMOL/L (136-145)
[2024-10-18] MEDS: ALBUTEROL 90 MCG/ACT 8 GM HFA INHALER INH ONE (07:53)
[2024-10-18] MEDS: METOPROLOL SUCC. 100 MG *XL* TAB PO SCH (08:38)
[2024-10-18 11:52] VITALS: BP 143/92; TEMP 97.9; O2SAT 97
[2024-10-18 12:00] VITALS: BP 143/92
[2024-10-18 14:00] VITALS: BP 147/94
[2024-10-18 19:35] VITALS: BP 132/98; TEMP 98.8; O2SAT 97
[2024-10-19] VITALS (7 sets, daily range): BP systolic 145–158; BP diastolic 90–105; TEMP 97.5–98.2; O2SAT 94–98
[2024-10-19] MEDS: OXAZEPAM 10MG CAP PO SCH (05:33)
[2024-10-19 06:25] LABS: BASO # 0.0 10^3/uL (0.0-0.2); BASO % 0.8 % (0.0-1.0); EOS # 0.4 10^3/uL (0.0-0.5); EOS % 7.9 % (0.0-3.0); LYMPH # 1.4 10^3/uL (1.5-5.0); LYMPH % 26.1 % (24.0-44.0); MONO # 0.5 10^3/uL (0.0-0.8); MONO % 8.6 % (2.0-8.0); NEUTROPHILS # 3.0 10^3/uL (1.5-8.5); NEUTROPHILS % 55.7 % (36.0-66.0); PLATELET COUNT, AUTOMATED 177 10^3/uL (150-450)
[2024-10-19 06:55] LABS: CALCIUM LEVEL 8.5 MG/DL (8.5-10.1); CARBON DIOXIDE LEVEL 25 MMOL/L (20-31); CHLORIDE LEVEL 100 MMOL/L (98-107); CREATININE FOR GFR 0.81 MG/DL (0.70-1.30); GLOMERULAR FILTRATION RATE > 90.0 (>60); POTASSIUM SERUM 3.8 MMOL/L (3.5-5.1); SODIUM LEVEL 138 MMOL/L (136-145)
[2024-10-19] MEDS: FLUTICASONE PROPIONATE 0.05% NASAL SPRAY 16 GM NARES SCH (09:00)
[2024-10-20 00:37] VITALS: BP 159/110; TEMP 97; O2SAT 96
[2024-10-20 04:36] VITALS: BP 155/109; TEMP 98.1; O2SAT 97
[2024-10-20 05:35] LABS: BASO # 0.0 10^3/uL (0.0-0.2); BASO % 0.7 % (0.0-1.0); EOS # 0.4 10^3/uL (0.0-0.5); EOS % 6.8 % (0.0-3.0); LYMPH # 1.6 10^3/uL (1.5-5.0); LYMPH % 25.5 % (24.0-44.0); MONO # 0.5 10^3/uL (0.0-0.8); MONO % 8.5 % (2.0-8.0); NEUTROPHILS # 3.5 10^3/uL (1.5-8.5); NEUTROPHILS % 57.5 % (36.0-66.0); PLATELET COUNT, AUTOMATED 166 10^3/uL (150-450)
[2024-10-20 05:55] LABS: CALCIUM LEVEL 8.6 MG/DL (8.5-10.1); CARBON DIOXIDE LEVEL 24 MMOL/L (20-31); CHLORIDE LEVEL 101 MMOL/L (98-107); CREATININE FOR GFR 0.79 MG/DL (0.70-1.30); GLOMERULAR FILTRATION RATE > 90.0 (>60); POTASSIUM SERUM 3.7 MMOL/L (3.5-5.1); SODIUM LEVEL 140 MMOL/L (136-145)
[2024-10-20 06:53] VITALS: BP 169/122; TEMP 98.1; O2SAT 96
[2024-10-20] MEDS: OXAZEPAM 15MG CAP PO SCH (06:56)
[2024-10-20 08:53] VITALS: BP 178/110
[2024-10-20] MEDS ORDERED: VENTAER INH (10:45)
[2024-10-20] MEDS ORDERED: SUCR1TA PO (10:45)
[2024-10-20] MEDS ORDERED: FLUTISP NARES (10:45)
[2024-10-20] MEDS ORDERED: THERTAB19 PO (10:45)
[2024-10-20] MEDS ORDERED: THIA100T7 PO (10:45)
[2024-10-20] MEDS ORDERED: PANT40TA29 PO (10:45)
[2024-10-20] MEDS ORDERED: LISI10TA22 PO (10:45)
[2024-10-20] MEDS ORDERED: AMLO1TAB24 PO (10:45)
[2024-10-20] MEDS ORDERED: OXAZ15CA4 PO (12:34)
[2024-10-20] MEDS ORDERED: **hydrALAZINE HCL** 25 MG TAB PO SCH (16:00)
== END 2024-10-20 10:51 | disposition left against medical advice (07) | DRG 199 ==
LOC: M ED 09:34 → M ED INP 14:39 → M MSPAV 18:23
PROVIDERS: ADMIT Internal Medicine Nephrology; ATTEND Internal Medicine Nephrology
DX: I16.0 Hypertensive urgency (principal); E11.42 Type 2 diabetes mellitus with diabetic polyneuropathy; K76.0 Fatty (change of) liver, not elsewhere classified; E66.01 Morbid (severe) obesity due to excess calories; Z68.41 Body mass index [BMI] 40.0-44.9, adult; F10.239 Alcohol dependence with withdrawal, unspecified; F41.9 Anxiety disorder, unspecified; R74.01 Elevation of levels of liver transaminase levels; K21.9 Gastro-esophageal reflux disease without esophagitis; R05.9 Cough, unspecified; B97.81 Human metapneumovirus as the cause of diseases classified elsewhere; K29.70 Gastritis, unspecified, without bleeding; G47.33 Obstructive sleep apnea (adult) (pediatric); Z79.84 Long term (current) use of oral hypoglycemic drugs; Z79.899 Other long term (current) drug therapy; Z91.048 Other nonmedicinal substance allergy status; Z91.040 Latex allergy status; Z91.018 Allergy to other foods; I10 Essential (primary) hypertension

== ENCOUNTER 2024-12-10 12:07 | Inpatient (IN) | payer OTHER ==
[~2024-12-10] VITALS: Ht 182.9 cm; Wt 137.1 kg
[2024-12-10] VITALS (9 sets, daily range): BP systolic 138–190; BP diastolic 81–117; TEMP 97–98.2; O2SAT 92–97
[~2024-12-10 12:07] MED LIST changes: +AMLO1TAB24 PO; +FLUTISP NARES; +HYDR-3490 PO; +OXAZ15CA4 PO; +THERTAB19 PO; +THIA100T7 PO; +VENTAER INH
[2024-12-10] MEDS ORDERED: TIRZ2.5P SQ (12:29)
[2024-12-10] MEDS ORDERED: IRBE150T27 PO (12:29)
[2024-12-10 13:01] LABS: BASO # 0.1 10^3/uL (0.0-0.2); BASO % 0.9 % (0.0-1.0); EOS # 0.3 10^3/uL (0.0-0.5); EOS % 3.2 % (0.0-3.0); LYMPH # 3.0 10^3/uL (1.5-5.0); LYMPH % 37.0 % (24.0-44.0); MONO # 0.7 10^3/uL (0.0-0.8); MONO % 9.0 % (2.0-8.0); NEUTROPHILS # 4.0 10^3/uL (1.5-8.5); NEUTROPHILS % 48.9 % (36.0-66.0); PLATELET COUNT, AUTOMATED 241 10^3/uL (150-450)
[2024-12-10 13:08] LABS: ETHYL ALCOHOL (ETHANOL) 0.101 % (0.000-0.010)
[2024-12-10 13:10] LABS: ALT/SGPT 173 U/L (7.0-40); AST/SGOT 102 U/L (<34); CALCIUM LEVEL 9.2 MG/DL (8.5-10.1); CARBON DIOXIDE LEVEL 24 MMOL/L (20-31); CHLORIDE LEVEL 97 MMOL/L (98-107); CREATININE FOR GFR 0.76 MG/DL (0.70-1.30); GLOMERULAR FILTRATION RATE > 90.0 (>60); POTASSIUM SERUM 4.3 MMOL/L (3.5-5.1); SALICYLATE LEVEL < 3.0 MG/DL (<30); SODIUM LEVEL 136 MMOL/L (136-145)
[2024-12-10 13:13] LABS: CPK CREATINE PHOSPHOKINASE 111 U/L (46-171)
[2024-12-10 14:20] LABS: AMPHETAMINES LEVEL URINE NEGATIVE (NEGATIVE); BARBITURATES URINE NEGATIVE (NEGATIVE); BENZODIAZEPINES URINE NEGATIVE (NEGATIVE); COCAINE METABOLITE URINE NEGATIVE (NEGATIVE); METHADONE URINE NEGATIVE (NEGATIVE); OPIATES URINE NEGATIVE (NEGATIVE); PHENCYCLIDINE URINE NEGATIVE (NEGATIVE)
[2024-12-10 14:25] LABS: CANNABINOIDS URINE POSITIVE (NEGATIVE)
[2024-12-10] MEDS: THIAMINE 100 MG TAB PO SCH (14:34)
[2024-12-10] MEDS: FOLIC ACID 1 MG TAB PO SCH (14:34)
[2024-12-10] MEDS ORDERED: DEXTROSE 50% 50 ML SYRINGE IV PRN (15:35)
[2024-12-10] MEDS ORDERED: GLUCAGON INJ 1 MG VIAL SC PRN (15:35)
[2024-12-10] MEDS ORDERED: GLUCOSE 4 GM CHEW PO PRN (15:35)
[2024-12-10 16:08] LABS: INR 0.97
[2024-12-10] MEDS: hydrALAZINE 20 MG/ML 1 ML VIAL IV STA (16:15)
[2024-12-10] MEDS: METOPROLOL 5 MG/5 ML VIAL IV SCH (16:34)
[2024-12-10 16:51] LABS: HEPATITIS C VIRUS ABY INDEX < 0.02 INDEX (<0.8)
[2024-12-10] MEDS ORDERED: hydrALAZINE 20 MG/ML 1 ML VIAL IV PRN (16:55)
[2024-12-10] MEDS ORDERED: METF-838 PO (17:17)
[2024-12-10] MEDS ORDERED: MELA3TAB30 PO (17:17)
[2024-12-10] MEDS ORDERED: MULTTAB61 PO (17:17)
[2024-12-10] MEDS ORDERED: HOME MED LIST COMPLETE! XX SCH (17:20)
[2024-12-10] MEDS: FUROSEMIDE 100 MG/10 ML VIAL IV ONE (17:29)
[2024-12-10] MEDS: NITROGLYCERIN 2% OINT 1 GM *U/D* PKT TOP ONE (17:41)
[2024-12-10 17:51] LABS: ESTIMATED AVERAGE GLUCOSE 197.0 MG/DL (60-110)
[2024-12-10] MEDS ORDERED: METOPROLOL TART 50 MG TAB PO SCH (18:00)
[2024-12-10] MEDS: chlordiazePOXIDE 25 MG CAP PO SCH (18:36)
[2024-12-10] MEDS: INSULIN LISPRO (NovoLOG) PER UNIT SC SCH ×2 (18:39→20:32)
[2024-12-10] MEDS: LanTUS (INSULIN GLARGINE INJ) 1 UNITS/0.01 ML SC SCH (20:32)
[2024-12-10] MEDS: METOPROLOL TART 50 MG TAB PO SCH (20:36)
[2024-12-11] VITALS (15 sets, daily range): BP systolic 117–156; BP diastolic 69–91; TEMP 97–97.5; O2SAT 93–98
[2024-12-11 05:11] LABS: PLATELET COUNT, AUTOMATED 208 10^3/uL (150-450)
[2024-12-11 05:45] LABS: ALT/SGPT 141 U/L (7.0-40); AST/SGOT 73 U/L (<34); CALCIUM LEVEL 9.3 MG/DL (8.5-10.1); CARBON DIOXIDE LEVEL 27 MMOL/L (20-31); CHLORIDE LEVEL 97 MMOL/L (98-107); CREATININE FOR GFR 0.73 MG/DL (0.70-1.30); GLOMERULAR FILTRATION RATE > 90.0 (>60); POTASSIUM SERUM 3.7 MMOL/L (3.5-5.1); SODIUM LEVEL 137 MMOL/L (136-145)
[2024-12-11] MEDS: LOSARTAN 50 MG TABLET PO ONE (09:25)
[2024-12-11] MEDS: POTASSIUM CHLORIDE 10MEQ SR TABLET PO ONE (09:36)
[2024-12-11] MEDS: MULTIVITAMINS/MINERALS THERAP 1 TAB PO SCH (09:37)
[2024-12-11 10:11] LABS: MAGNESIUM LEVEL 2.3 MG/DL (1.8-2.4)
[2024-12-11] MEDS: METOPROLOL SUCC. 100 MG *XL* TAB PO SCH (12:37)
[2024-12-11] MEDS ORDERED: ISOVUE-370 76% 100 ML VIAL As Ordered ONE (15:16)
[2024-12-11] MEDS: INSULIN LISPRO (NovoLOG) PER UNIT SC SCH (18:32)
[2024-12-11] MEDS: LanTUS (INSULIN GLARGINE INJ) 1 UNITS/0.01 ML SC SCH (20:05)
[2024-12-12 03:16] VITALS: BP 106/70; TEMP 97.7; O2SAT 100
[2024-12-12 04:00] VITALS: BP 106/70
[2024-12-12 06:09] LABS: PLATELET COUNT, AUTOMATED 150 10^3/uL (150-450)
[2024-12-12 06:42] LABS: ALT/SGPT 152 U/L (7.0-40); AST/SGOT 127 U/L (<34); CALCIUM LEVEL 9.0 MG/DL (8.5-10.1); CARBON DIOXIDE LEVEL 26 MMOL/L (20-31); CHLORIDE LEVEL 99 MMOL/L (98-107); CREATININE FOR GFR 0.79 MG/DL (0.70-1.30); GLOMERULAR FILTRATION RATE > 90.0 (>60); POTASSIUM SERUM 4.0 MMOL/L (3.5-5.1); SODIUM LEVEL 136 MMOL/L (136-145)
[2024-12-12 08:00] VITALS: BP_SYST 130; BP_SYST 141; BP_DIAS 86; BP_DIAS 91; TEMP 97.5; TEMP 98.2; O2SAT 98
[2024-12-12] MEDS: INSULIN LISPRO (NovoLOG) PER UNIT SC SCH (08:18)
[2024-12-12] MEDS ORDERED: CHLO25CA10 PO (10:59)
[2024-12-12 12:00] VITALS: BP 141/91; TEMP 98.2; O2SAT 98
[2024-12-12] MEDS ORDERED: LanTUS (INSULIN GLARGINE INJ) 1 UNITS/0.01 ML SC SCH (21:00)
== END 2024-12-12 14:25 | disposition home or self-care (01) | DRG 775 ==
LOC: M ED 12:07 → M ED INP 15:28 → M PCU 16:29
PROVIDERS: ADMIT General Practice; ATTEND General Practice
DX: F10.139 Alcohol abuse with withdrawal, unspecified (principal); E11.40 Type 2 diabetes mellitus with diabetic neuropathy, unspecified; E66.01 Morbid (severe) obesity due to excess calories; Z68.41 Body mass index [BMI] 40.0-44.9, adult; R11.2 Nausea with vomiting, unspecified; I10 Essential (primary) hypertension; F41.0 Panic disorder [episodic paroxysmal anxiety]; I16.0 Hypertensive urgency; K29.20 Alcoholic gastritis without bleeding; K70.0 Alcoholic fatty liver; R74.01 Elevation of levels of liver transaminase levels; G47.33 Obstructive sleep apnea (adult) (pediatric); K21.9 Gastro-esophageal reflux disease without esophagitis; F12.10 Cannabis abuse, uncomplicated; F50.819 Binge eating disorder, unspecified; R41.0 Disorientation, unspecified; Z79.899 Other long term (current) drug therapy; Z79.84 Long term (current) use of oral hypoglycemic drugs; Z91.018 Allergy to other foods; Z91.048 Other nonmedicinal substance allergy status; Z91.040 Latex allergy status

== ENCOUNTER 2025-01-09 09:56 | Observation (INO) | payer OTHER ==
[~2025-01-09] VITALS: Ht 182.9 cm; Wt 139.1 kg
[~2025-01-09 09:56] MED LIST changes: +IRBE150T27 PO; +MELA3TAB30 PO; +METF-838 PO; +MULTTAB61 PO; +TIRZ2.5P SQ
[2025-01-09 11:17] LABS: PLATELET COUNT, AUTOMATED 197 10^3/uL (150-450)
[2025-01-09 11:41] LABS: ETHYL ALCOHOL (ETHANOL) 0.072 % (0.000-0.010)
[2025-01-09 11:42] LABS: ALT/SGPT 109 U/L (7.0-40); AST/SGOT 95 U/L (<34); CALCIUM LEVEL 8.5 MG/DL (8.5-10.1); CARBON DIOXIDE LEVEL 22 MMOL/L (20-31); CHLORIDE LEVEL 97 MMOL/L (98-107); CREATININE FOR GFR 0.64 MG/DL (0.70-1.30); GLOMERULAR FILTRATION RATE > 90.0 (>60); POTASSIUM SERUM 3.9 MMOL/L (3.5-5.1); SALICYLATE LEVEL < 3.0 MG/DL (<30); SODIUM LEVEL 133 MMOL/L (136-145)
[2025-01-09 12:04] LABS: AMPHETAMINES LEVEL URINE NEGATIVE (NEGATIVE)
[2025-01-09 12:05] LABS: BARBITURATES URINE NEGATIVE (NEGATIVE); COCAINE METABOLITE URINE NEGATIVE (NEGATIVE); METHADONE URINE NEGATIVE (NEGATIVE); OPIATES URINE NEGATIVE (NEGATIVE); PHENCYCLIDINE URINE NEGATIVE (NEGATIVE)
[2025-01-09 12:09] LABS: BENZODIAZEPINES URINE POSITIVE (NEGATIVE); CANNABINOIDS URINE POSITIVE (NEGATIVE)
[2025-01-09] MEDS ORDERED: ISOVUE-370 76% 100 ML VIAL As Ordered ONE (12:55)
[2025-01-09 13:03] LABS: CK-MB VALUE MASS < 1.0 NG/ML (<3.6)
[2025-01-09] MEDS: THIAMINE 100 MG TAB PO SCH (13:07)
[2025-01-09] MEDS: NS (Normal Saline) 0.9% 1,000 ML IV ONE (13:07)
[2025-01-09] MEDS: FOLIC ACID 1 MG TAB PO SCH (13:07)
[2025-01-09] MEDS: OXAZEPAM 15MG CAP PO ONE (13:07)
[2025-01-09] MEDS: MULTIVITAMINS/MINERALS THERAP 1 TAB PO SCH (13:08)
[2025-01-09 13:16] LABS: CPK CREATINE PHOSPHOKINASE 105 U/L (46-171)
[2025-01-09 13:41] LABS: CK-MB VALUE MASS < 1.0 NG/ML (<3.6)
[2025-01-09 13:42] LABS: CPK CREATINE PHOSPHOKINASE 92 U/L (46-171)
[2025-01-09] MEDS ORDERED: HOME MED LIST COMPLETE! XX SCH (13:50)
[2025-01-09] MEDS ORDERED: MULTIVITAMIN -ADULT INJECTION 10 ML, THIAMINE INJection 100 MG, FOLIC ACID 1 MG in NS (... IV ONE (15:20)
[2025-01-09] MEDS ORDERED: ACETAMINOPHEN 325 MG TAB PO PRN (16:10)
[2025-01-09 16:20] VITALS: BP 160/118; TEMP 98; O2SAT 95
[2025-01-09] MEDS ORDERED: DEXTROSE 50% 50 ML SYRINGE IV PRN (16:25)
[2025-01-09] MEDS ORDERED: GLUCOSE 4 GM CHEW PO PRN (16:25)
[2025-01-09] MEDS ORDERED: GLUCAGON INJ 1 MG VIAL SC PRN (16:25)
[2025-01-09] MEDS ORDERED: METOPROLOL 5 MG/5 ML VIAL IV ONE (16:40)
[2025-01-09 17:00] VITALS: BP 160/118
[2025-01-09] MEDS ORDERED: METOPROLOL TART 25 MG TABLET PO ONE (17:00)
[2025-01-09] MEDS: OXAZEPAM 15MG CAP PO SCH (17:07)
[2025-01-09] MEDS: amLODIPine 5 MG TAB PO ONE (18:10)
[2025-01-09] MEDS: INSULIN LISPRO (NovoLOG) PER UNIT SC SCH ×2 (18:10→21:00)
[2025-01-09 19:20] VITALS: BP 162/102; TEMP 97.9; O2SAT 96
[2025-01-09] MEDS: GABAPENTIN 300 MG CAP PO SCH (19:22)
[2025-01-09] MEDS: DOCUSATE SODIUM 100 MG CAPSULE PO SCH (19:23)
[2025-01-09 21:24] VITALS: BP 157/99; TEMP 97.4; O2SAT 96
[2025-01-10] VITALS (8 sets, daily range): BP systolic 138–158; BP diastolic 90–108; TEMP 96.9–98.2; O2SAT 94–96
[2025-01-10] MEDS: ENOXAPARIN 40 MG/0.4 ML SYRINGE (J1650 PER 10MG) SC SCH (08:32)
[2025-01-10] MEDS: IRBESARTAN 150 MG TAB PO SCH (08:33)
[2025-01-10] MEDS: METOPROLOL SUCC. 100 MG *XL* TAB PO SCH (08:33)
[2025-01-10 10:06] LABS: ALT/SGPT 96 U/L (7.0-40); AST/SGOT 79 U/L (<34); CALCIUM LEVEL 8.8 MG/DL (8.5-10.1); CARBON DIOXIDE LEVEL 27 MMOL/L (20-31); CHLORIDE LEVEL 98 MMOL/L (98-107); CREATININE FOR GFR 0.70 MG/DL (0.70-1.30); GLOMERULAR FILTRATION RATE > 90.0 (>60); POTASSIUM SERUM 3.8 MMOL/L (3.5-5.1); SODIUM LEVEL 136 MMOL/L (136-145)
[2025-01-10] MEDS: amLODIPine 10 MG TAB PO ONE (11:33)
[2025-01-11 00:31] VITALS: BP 110/76; TEMP 98.6; O2SAT 96
[2025-01-11 04:07] VITALS: BP 131/87; TEMP 98.2; O2SAT 95
[2025-01-11 05:35] LABS: ALT/SGPT 103 U/L (7.0-40); AST/SGOT 102 U/L (<34); CALCIUM LEVEL 8.3 MG/DL (8.5-10.1); CARBON DIOXIDE LEVEL 23 MMOL/L (20-31); CHLORIDE LEVEL 102 MMOL/L (98-107); CREATININE FOR GFR 0.80 MG/DL (0.70-1.30); GLOMERULAR FILTRATION RATE > 90.0 (>60); POTASSIUM SERUM 4.0 MMOL/L (3.5-5.1); SODIUM LEVEL 137 MMOL/L (136-145)
[2025-01-11 07:23] VITALS: BP 138/88; TEMP 96.8; O2SAT 94
[2025-01-11 09:38] VITALS: BP 141/91
[2025-01-11] MEDS: amLODIPine 10 MG TAB PO SCH (09:41)
[2025-01-11 09:42] VITALS: BP 141/91
[2025-01-11 11:30] VITALS: BP 148/91; TEMP 97.6; O2SAT 93
[2025-01-11] MEDS ORDERED: AMLO1TAB25 PO (11:40)
[2025-01-11] MEDS ORDERED: BLOOKIT XX (11:45)
[2025-01-11] MEDS ORDERED: CHLO25CA10 PO (12:10)
[2025-01-11] MEDS: chlordiazePOXIDE 25 MG CAP PO STA (13:38)
== END 2025-01-11 14:41 | disposition home or self-care (01) ==
LOC: M ED 09:56 → M ED INP 09:57 → UNDOADMOB 15:14 → M ED INP 15:14 → INTOOBSV 15:14 → M PCU 16:13 → M ED INP 16:13
PROVIDERS: ADMIT Student in an Organized Health Care Education/Training Program; ATTEND Student in an Organized Health Care Education/Training Program
DX: F10.239 Alcohol dependence with withdrawal, unspecified (principal); F41.9 Anxiety disorder, unspecified; I10 Essential (primary) hypertension; E11.40 Type 2 diabetes mellitus with diabetic neuropathy, unspecified; K76.0 Fatty (change of) liver, not elsewhere classified; R74.01 Elevation of levels of liver transaminase levels; E87.1 Hypo-osmolality and hyponatremia; K29.20 Alcoholic gastritis without bleeding; K21.9 Gastro-esophageal reflux disease without esophagitis; R10.11 Right upper quadrant pain; R00.0 Tachycardia, unspecified; E66.9 Obesity, unspecified; Z68.41 Body mass index [BMI] 40.0-44.9, adult; G47.33 Obstructive sleep apnea (adult) (pediatric); F50.819 Binge eating disorder, unspecified; F12.90 Cannabis use, unspecified, uncomplicated; Z82.49 Family history of ischemic heart disease and other diseases of the circulatory system; Z82.41 Family history of sudden cardiac death; Z80.0 Family history of malignant neoplasm of digestive organs; Z91.040 Latex allergy status; Z91.048 Other nonmedicinal substance allergy status; Z88.8 Allergy status to other drugs, medicaments and biological substances; Z91.018 Allergy to other foods; Z79.899 Other long term (current) drug therapy; Z79.84 Long term (current) use of oral hypoglycemic drugs
CPT/HCPCS: 36415; 71045; 74177; 76775; 80048; 80053; 80076; 80143; 80307; 82077; 82550; 82553; 83690; 84443; 84484; 85027; 93005; 93041; 93975; 94760; 96361; 96374; 99285; J1815; J2060; Q9967

== ENCOUNTER 2025-02-14 17:45 | Inpatient (IN) | payer OTHER ==
[~2025-02-14] VITALS: Ht 182.9 cm; Wt 136.7 kg
[~2025-02-14 17:45] MED LIST changes: +AMLO1TAB25 PO; +BLOOKIT XX
[2025-02-14] MEDS: NS (Normal Saline) 0.9% 1,000 ML IV ONE ×2 (18:15→19:56)
[2025-02-14 18:19] LABS: BASO # 0.0 10^3/uL (0.0-0.2); BASO % 0.6 % (0.0-1.0); EOS # 0.1 10^3/uL (0.0-0.5); EOS % 1.9 % (0.0-3.0); LYMPH # 2.1 10^3/uL (1.5-5.0); LYMPH % 30.8 % (24.0-44.0); MONO # 0.7 10^3/uL (0.0-0.8); MONO % 10.0 % (2.0-8.0); NEUTROPHILS # 3.8 10^3/uL (1.5-8.5); NEUTROPHILS % 56.4 % (36.0-66.0); PLATELET COUNT, AUTOMATED 218 10^3/uL (150-450)
[2025-02-14 18:40] LABS: ETHYL ALCOHOL (ETHANOL) 0.244 % (0.000-0.010)
[2025-02-14 18:42] LABS: ALT/SGPT 221 U/L (7.0-40); AST/SGOT 252 U/L (<34); CALCIUM LEVEL 8.9 MG/DL (8.5-10.1); CARBON DIOXIDE LEVEL 23 MMOL/L (20-31); CHLORIDE LEVEL 94 MMOL/L (98-107); CREATININE FOR GFR 0.61 MG/DL (0.70-1.30); GLOMERULAR FILTRATION RATE > 90.0 (>60); MAGNESIUM LEVEL 2.2 MG/DL (1.8-2.4); POTASSIUM SERUM 3.8 MMOL/L (3.5-5.1); SALICYLATE LEVEL < 3.0 MG/DL (<30); SODIUM LEVEL 132 MMOL/L (136-145)
[2025-02-14 18:46] LABS: CPK CREATINE PHOSPHOKINASE 486 U/L (46-171)
[2025-02-14] MEDS: METOPROLOL 5 MG/5 ML VIAL IV SCH (18:58)
[2025-02-14 19:53] LABS: AMPHETAMINES LEVEL URINE NEGATIVE (NEGATIVE)
[2025-02-14 19:54] LABS: BARBITURATES URINE NEGATIVE (NEGATIVE); BENZODIAZEPINES URINE NEGATIVE (NEGATIVE); CANNABINOIDS URINE POSITIVE (NEGATIVE); COCAINE METABOLITE URINE NEGATIVE (NEGATIVE); METHADONE URINE NEGATIVE (NEGATIVE); OPIATES URINE NEGATIVE (NEGATIVE); PHENCYCLIDINE URINE NEGATIVE (NEGATIVE)
[2025-02-14] MEDS: dilTIAZem 25 MG/5 ML VIAL IV STA (20:42)
[2025-02-14] MEDS ORDERED: MOM 30 ML SUSPENSION UDC PO PRN (22:05)
[2025-02-14] MEDS ORDERED: DEXTROSE 50% 50 ML SYRINGE IV PRN (22:05)
[2025-02-14] MEDS ORDERED: GLUCAGON INJ 1 MG VIAL SC PRN (22:05)
[2025-02-14] MEDS ORDERED: GLUCOSE 4 GM CHEW PO PRN (22:05)
[2025-02-14] MEDS ORDERED: ACETAMINOPHEN 325 MG TAB PO PRN (22:05)
[2025-02-14] MEDS: METOPROLOL SUCC. 100 MG *XL* TAB PO ONE (22:13)
[2025-02-14] MEDS: NS (Normal Saline) 0.9% 1,000 ML IV SCH (22:14)
[2025-02-14] MEDS ORDERED: MELATAB3 PO (22:16)
[2025-02-14] MEDS ORDERED: HOME MED LIST COMPLETE! XX SCH (22:25)
[2025-02-14] MEDS: APIXABAN 5 MG TAB PO SCH (22:49)
[2025-02-14] MEDS: AMIODARONE HCL 150 MG in IV 1 EA IV SCH (22:57)
[2025-02-14] MEDS ORDERED: dilTIAZem 25 MG/5 ML VIAL IV SCH (23:25)
[2025-02-15] VITALS (36 sets, daily range): BP systolic 103–156; BP diastolic 60–97; TEMP 97.2–98.6; O2SAT 90–97
[2025-02-15] MEDS: THIAMINE 100 MG TAB PO SCH (01:09)
[2025-02-15] MEDS: ONDANSETRON 4MG/2ML VIAL IV PRN (01:54)
[2025-02-15] MEDS: RAMELTEON 8 MG TAB PO ONE (01:57)
[2025-02-15] MEDS: dexmedeTOMidine 200 MCG in IV 1 EA IV SCH (05:01)
[2025-02-15] MEDS: PANTOPRAZOLE 40MG VIAL IV SCH (05:53)
[2025-02-15] MEDS: INSULIN LISPRO (NovoLOG) PER UNIT SC SCH ×3 (06:00→20:16)
[2025-02-15] MEDS: IPRATROPIUM 0.5 MG/ALBUTEROL 2.5 MG INH SOL UD 3 ML NEB SCH (07:23)
[2025-02-15] MEDS ORDERED: INSULIN LISPRO (NovoLOG) PER UNIT SC SCH (07:30)
[2025-02-15 07:52] LABS: PLATELET COUNT, AUTOMATED 156 10^3/uL (150-450)
[2025-02-15 08:13] LABS: ALT/SGPT 172 U/L (7.0-40); AST/SGOT 186 U/L (<34); CALCIUM LEVEL 8.0 MG/DL (8.5-10.1); CARBON DIOXIDE LEVEL 23 MMOL/L (20-31); CHLORIDE LEVEL 100 MMOL/L (98-107); CREATININE FOR GFR 0.59 MG/DL (0.70-1.30); GLOMERULAR FILTRATION RATE > 90.0 (>60); MAGNESIUM LEVEL 1.8 MG/DL (1.8-2.4); POTASSIUM SERUM 3.7 MMOL/L (3.5-5.1); SODIUM LEVEL 136 MMOL/L (136-145)
[2025-02-15] MEDS ORDERED: MULTIVITAMINS/MINERALS THERAP 1 TAB PO SCH (09:00)
[2025-02-15] MEDS ORDERED: PANTOPRAZOLE 40MG TAB PO SCH (09:00)
[2025-02-15] MEDS ORDERED: FOLIC ACID 1 MG TAB PO SCH (09:00)
[2025-02-15] MEDS ORDERED: IRBESARTAN 150 MG TAB PO SCH (09:00)
[2025-02-15] MEDS ORDERED: THIAMINE 100 MG TAB PO SCH (09:00)
[2025-02-15] MEDS ORDERED: amLODIPine 10 MG TAB PO SCH (09:00)
[2025-02-15] MEDS: MULTIVITAMINS/MINERALS THERAP 1 TAB PO SCH (10:16)
[2025-02-15] MEDS: GABAPENTIN 300 MG CAP PO SCH (10:17)
[2025-02-15] MEDS: FOLIC ACID 1 MG TAB PO SCH (10:17)
[2025-02-15] MEDS: METOPROLOL SUCC. 100 MG *XL* TAB PO SCH (11:02)
[2025-02-15] MEDS: chlordiazePOXIDE 25 MG CAP PO SCH (12:00)
[2025-02-15] MEDS ORDERED: METOPROLOL SUCC. 100 MG *XL* TAB PO SCH ×2 (12:00→15:00)
[2025-02-15] MEDS: amLODIPine 10 MG TAB PO SCH (15:19)
[2025-02-16] VITALS (9 sets, daily range): BP systolic 112–143; BP diastolic 74–90; TEMP 97–98.2; O2SAT 93–98
[2025-02-16] MEDS: CHLORASEPTIC SPRAY MT PRN (04:31)
[2025-02-16 05:31] LABS: BASO # 0.0 10^3/uL (0.0-0.2); BASO % 0.6 % (0.0-1.0); EOS # 0.5 10^3/uL (0.0-0.5); EOS % 9.4 % (0.0-3.0); LYMPH # 1.1 10^3/uL (1.5-5.0); LYMPH % 20.6 % (24.0-44.0); MONO # 0.4 10^3/uL (0.0-0.8); MONO % 6.7 % (2.0-8.0); NEUTROPHILS # 3.2 10^3/uL (1.5-8.5); NEUTROPHILS % 62.5 % (36.0-66.0); PLATELET COUNT, AUTOMATED 114 10^3/uL (150-450)
[2025-02-16 06:03] LABS: CK-MB VALUE MASS 1.1 NG/ML (<3.6)
[2025-02-16 06:06] LABS: ALT/SGPT 168 U/L (7.0-40); AST/SGOT 192 U/L (<34); CALCIUM LEVEL 8.3 MG/DL (8.5-10.1); CARBON DIOXIDE LEVEL 24 MMOL/L (20-31); CHLORIDE LEVEL 100 MMOL/L (98-107); CPK CREATINE PHOSPHOKINASE 171 U/L (46-171); CREATININE FOR GFR 0.68 MG/DL (0.70-1.30); GLOMERULAR FILTRATION RATE > 90.0 (>60); MAGNESIUM LEVEL 2.0 MG/DL (1.8-2.4); MB/CK RELATIVE INDEX 0.64 (< OR =4); POTASSIUM SERUM 3.6 MMOL/L (3.5-5.1); SODIUM LEVEL 134 MMOL/L (136-145)
[2025-02-16] MEDS: chlordiazePOXIDE 25 MG CAP PO SCH (11:52)
[2025-02-16] MEDS: IRBESARTAN 150 MG TAB PO SCH (12:01)
[2025-02-17 00:07] VITALS: BP 125/81; TEMP 98.2; O2SAT 96
[2025-02-17 04:42] VITALS: BP 138/79; TEMP 97.8; O2SAT 96
[2025-02-17 08:00] VITALS: BP_SYST 146; BP_SYST 148; BP_DIAS 105; TEMP 98.1; O2SAT 97
[2025-02-17 08:22] LABS: PLATELET COUNT, AUTOMATED 143 10^3/uL (150-450)
[2025-02-17 08:56] LABS: CALCIUM LEVEL 8.7 MG/DL (8.5-10.1); CARBON DIOXIDE LEVEL 24 MMOL/L (20-31); CHLORIDE LEVEL 101 MMOL/L (98-107); CREATININE FOR GFR 0.74 MG/DL (0.70-1.30); GLOMERULAR FILTRATION RATE > 90.0 (>60); MAGNESIUM LEVEL 2.0 MG/DL (1.8-2.4); POTASSIUM SERUM 3.4 MMOL/L (3.5-5.1); SODIUM LEVEL 138 MMOL/L (136-145)
[2025-02-17 09:00] VITALS: BP 148/78
[2025-02-17] MEDS: chlordiazePOXIDE 25 MG CAP PO SCH (12:36)
[2025-02-17 13:04] VITALS: BP 134/70; TEMP 97.9; O2SAT 96
[2025-02-17] MEDS ORDERED: ELIQ5TAB PO (13:15)
[2025-02-17] MEDS ORDERED: CHLO25CA10 PO (13:15)
[2025-02-17] MEDS ORDERED: CEPH500C PO (13:15)
[2025-02-17] MEDS ORDERED: BACI28.417 TOP (13:15)
[2025-02-18] MEDS ORDERED: chlordiazePOXIDE 25 MG CAP PO SCH (21:00)
== END 2025-02-17 13:54 | disposition home or self-care (01) | DRG 775 ==
LOC: M ED 17:45 → EDBD 17:45 → M ED INP 22:02 → M PCU 02-15 00:47 → M ICU 02-15 04:59
PROVIDERS: ADMIT Internal Medicine; ATTEND Student in an Organized Health Care Education/Training Program
PROC: B246ZZZ Ultrasonography of Right and Left Heart (ICD-10-PCS; principal; 2025-02-15)
DX: F10.231 Alcohol dependence with withdrawal delirium (principal); E11.40 Type 2 diabetes mellitus with diabetic neuropathy, unspecified; Z68.41 Body mass index [BMI] 40.0-44.9, adult; E66.01 Morbid (severe) obesity due to excess calories; I48.0 Paroxysmal atrial fibrillation; I16.0 Hypertensive urgency; K70.0 Alcoholic fatty liver; E80.6 Other disorders of bilirubin metabolism; E87.1 Hypo-osmolality and hyponatremia; F12.10 Cannabis abuse, uncomplicated; F41.0 Panic disorder [episodic paroxysmal anxiety]; F41.1 Generalized anxiety disorder; G47.33 Obstructive sleep apnea (adult) (pediatric); I10 Essential (primary) hypertension; K21.9 Gastro-esophageal reflux disease without esophagitis; K29.20 Alcoholic gastritis without bleeding; Z79.84 Long term (current) use of oral hypoglycemic drugs; Z79.899 Other long term (current) drug therapy; Z91.018 Allergy to other foods

== ENCOUNTER 2025-03-10 13:15 | Inpatient (IN) | payer OTHER, MEDICAID ==
[~2025-03-10] VITALS: Ht 182.9 cm; Wt 139.1 kg
[2025-03-10] VITALS (7 sets, daily range): BP systolic 132–172; BP diastolic 70–121; TEMP 97.4–98.4; O2SAT 95
[~2025-03-10 13:15] MED LIST changes: +BACI28.417 TOP; +CEPH500C PO; +ELIQ5TAB PO; +MELATAB3 PO
[2025-03-10] MEDS: NS (Normal Saline) 0.9% 1,000 ML IV ONE (13:39)
[2025-03-10 13:43] LABS: BASO # 0.1 10^3/uL (0.0-0.2); BASO % 0.9 % (0.0-1.0); EOS # 0.1 10^3/uL (0.0-0.5); EOS % 1.8 % (0.0-3.0); LYMPH # 1.8 10^3/uL (1.5-5.0); LYMPH % 22.9 % (24.0-44.0); MONO # 0.6 10^3/uL (0.0-0.8); MONO % 8.3 % (2.0-8.0); NEUTROPHILS # 5.0 10^3/uL (1.5-8.5); NEUTROPHILS % 65.7 % (36.0-66.0); PLATELET COUNT, AUTOMATED 212 10^3/uL (150-450)
[2025-03-10] MEDS: THIAMINE 100 MG TAB PO SCH ×2 (13:46→19:53)
[2025-03-10] MEDS: FOLIC ACID 1 MG TAB PO SCH (13:46)
[2025-03-10 14:13] LABS: ETHYL ALCOHOL (ETHANOL) 0.220 % (0.000-0.010)
[2025-03-10 14:15] LABS: ALT/SGPT 174 U/L (7.0-40); AST/SGOT 248 U/L (<34); CALCIUM LEVEL 8.6 MG/DL (8.5-10.1); CARBON DIOXIDE LEVEL 21 MMOL/L (20-31); CHLORIDE LEVEL 93 MMOL/L (98-107); CK-MB VALUE MASS 1.5 NG/ML (<3.6); CREATININE FOR GFR 0.54 MG/DL (0.70-1.30); GLOMERULAR FILTRATION RATE > 90.0 (>60); MAGNESIUM LEVEL 2.0 MG/DL (1.8-2.4); POTASSIUM SERUM 4.2 MMOL/L (3.5-5.1); SODIUM LEVEL 130 MMOL/L (136-145)
[2025-03-10 14:17] LABS: FREE T4 1.33 NG/DL (0.89-1.76)
[2025-03-10 14:18] LABS: CPK CREATINE PHOSPHOKINASE 302 U/L (46-171); MB/CK RELATIVE INDEX 0.49 (< OR =4)
[2025-03-10 15:04] LABS: CK-MB VALUE MASS 1.4 NG/ML (<3.6)
[2025-03-10 15:07] LABS: CPK CREATINE PHOSPHOKINASE 281.0 U/L (46-171); MB/CK RELATIVE INDEX 0.49 (< OR =4)
[2025-03-10] MEDS: ONDANSETRON 4MG/2ML VIAL IV ONE (15:19)
[2025-03-10] MEDS: dilTIAZem 25 MG/5 ML VIAL IV STA ×2 (15:41→16:12)
[2025-03-10] MEDS ORDERED: ELIQ5TAB PO (16:37)
[2025-03-10] MEDS ORDERED: ONDA-195 PO (16:37)
[2025-03-10] MEDS ORDERED: AMLO1TAB25 PO (16:37)
[2025-03-10] MEDS ORDERED: HOME MED LIST COMPLETE! XX SCH (16:40)
[2025-03-10] MEDS: OXAZEPAM 15MG CAP PO SCH (17:26)
[2025-03-10] MEDS: dilTIAZem 60 MG TAB PO SCH (17:35)
[2025-03-10] MEDS: ONDANSETRON 4MG TAB PO PRN (17:36)
[2025-03-10] MEDS: APIXABAN 5 MG TAB PO SCH (19:52)
[2025-03-10] MEDS: GABAPENTIN 300 MG CAP PO PRN (23:09)
[2025-03-11] VITALS (17 sets, daily range): BP systolic 93–183; BP diastolic 52–107; TEMP 97.2–99.4; O2SAT 88–96
[2025-03-11 05:52] LABS: ALT/SGPT 141 U/L (7.0-40); AST/SGOT 174 U/L (<34); CALCIUM LEVEL 8.0 MG/DL (8.5-10.1); CARBON DIOXIDE LEVEL 27 MMOL/L (20-31); CHLORIDE LEVEL 95 MMOL/L (98-107); CREATININE FOR GFR 0.61 MG/DL (0.70-1.30); GLOMERULAR FILTRATION RATE > 90.0 (>60); MAGNESIUM LEVEL 1.8 MG/DL (1.8-2.4); PHOSPHORUS LEVEL 3.9 MG/DL (2.5-4.9); POTASSIUM SERUM 3.7 MMOL/L (3.5-5.1); SODIUM LEVEL 132 MMOL/L (136-145)
[2025-03-11] MEDS: MULTIVITAMINS/MINERALS THERAP 1 TAB PO SCH (08:26)
[2025-03-11] MEDS: amLODIPine 10 MG TAB PO SCH (08:27)
[2025-03-11] MEDS: METOPROLOL SUCC. 100 MG *XL* TAB PO SCH (08:28)
[2025-03-11] MEDS: PANTOPRAZOLE 40MG TAB PO SCH (08:28)
[2025-03-11] MEDS: FOLIC ACID 1 MG TAB PO SCH (08:29)
[2025-03-11] MEDS: chlordiazePOXIDE 25 MG CAP PO SCH (08:29)
[2025-03-11] MEDS ORDERED: MULTIVITAMINS/MINERALS THERAP 1 TAB PO SCH (09:00)
[2025-03-11] MEDS ORDERED: PANTOPRAZOLE 40MG VIAL IV SCH (09:00)
== END 2025-03-11 15:28 | disposition left against medical advice (07) | DRG 201 ==
LOC: M ED 13:15 → M ED INP 16:27 → M ICU 18:38
PROVIDERS: ADMIT Internal Medicine Pulmonary Disease; ATTEND Internal Medicine Pulmonary Disease
DX: I48.91 Unspecified atrial fibrillation (principal); E87.1 Hypo-osmolality and hyponatremia; E66.01 Morbid (severe) obesity due to excess calories; K70.0 Alcoholic fatty liver; F10.239 Alcohol dependence with withdrawal, unspecified; F41.0 Panic disorder [episodic paroxysmal anxiety]; E11.9 Type 2 diabetes mellitus without complications; G47.33 Obstructive sleep apnea (adult) (pediatric); K21.9 Gastro-esophageal reflux disease without esophagitis; F12.10 Cannabis abuse, uncomplicated; Z79.01 Long term (current) use of anticoagulants; Z79.84 Long term (current) use of oral hypoglycemic drugs; Z79.899 Other long term (current) drug therapy; Z91.018 Allergy to other foods; Z91.040 Latex allergy status; Z91.048 Other nonmedicinal substance allergy status

== ENCOUNTER 2025-03-31 23:12 | Emergency (ER) | payer OTHER ==
[~2025-03-31] VITALS: Ht 185.4 cm; Wt 137.2 kg
[~2025-03-31 23:12] MED LIST changes: +ONDA-195 PO
[2025-03-31] MEDS: ONDANSETRON 4MG/2ML VIAL IV ONE (23:25)
[2025-03-31 23:26] VITALS: TEMP 98.7
[2025-04-01 00:16] LABS: BASO # 0.1 10^3/uL (0.0-0.2); BASO % 1.0 % (0.0-1.0); EOS # 0.2 10^3/uL (0.0-0.5); EOS % 2.3 % (0.0-3.0); LYMPH # 1.6 10^3/uL (1.5-5.0); LYMPH % 23.1 % (24.0-44.0); MONO # 0.6 10^3/uL (0.0-0.8); MONO % 8.5 % (2.0-8.0); NEUTROPHILS # 4.6 10^3/uL (1.5-8.5); NEUTROPHILS % 64.4 % (36.0-66.0); PLATELET COUNT, AUTOMATED 232 10^3/uL (150-450)
[2025-04-01] MEDS: NS (Normal Saline) 0.9% 1,000 ML IV ONE ×2 (00:19→03:01)
[2025-04-01 00:22] LABS: ETHYL ALCOHOL (ETHANOL) 0.182 % (0.000-0.010)
[2025-04-01 00:24] LABS: CALCIUM LEVEL 8.8 MG/DL (8.5-10.1); CARBON DIOXIDE LEVEL 22 MMOL/L (20-31); CHLORIDE LEVEL 96 MMOL/L (98-107); CREATININE FOR GFR 0.60 MG/DL (0.70-1.30); GLOMERULAR FILTRATION RATE > 90.0 (>60); MAGNESIUM LEVEL 2.2 MG/DL (1.8-2.4); POTASSIUM SERUM 3.9 MMOL/L (3.5-5.1); SODIUM LEVEL 134 MMOL/L (136-145)
[2025-04-01 01:55] LABS: ALT/SGPT 165 U/L (7.0-40); AST/SGOT 209 U/L (<34)
[2025-04-01] MEDS: OXAZEPAM 15MG CAP PO ONE (01:55)
[2025-04-01] MEDS: METOPROLOL 5 MG/5 ML VIAL IV SCH (01:57)
[2025-04-01 03:04] VITALS: BP 152/90
[2025-04-01] MEDS: METOPROLOL TART 50 MG TAB PO ONE (03:04)
[2025-04-01 03:45] VITALS: BP 168/95
[2025-04-01] MEDS: OXAZEPAM 10MG CAP PO ONE (04:32)
[2025-04-01] MEDS ORDERED: OXAZ30CA2 PO (05:25)
[2025-04-01 05:30] VITALS: O2SAT 95
== END 2025-04-01 06:21 | disposition home or self-care (01) ==
LOC: EDBD 23:12 → M ED 23:12
DX: F10.130 Alcohol abuse with withdrawal, uncomplicated (principal); E11.9 Type 2 diabetes mellitus without complications; I10 Essential (primary) hypertension; Z91.040 Latex allergy status; Z91.018 Allergy to other foods; Z79.01 Long term (current) use of anticoagulants; Z79.84 Long term (current) use of oral hypoglycemic drugs; Z79.899 Other long term (current) drug therapy; Z79.810 Long term (current) use of selective estrogen receptor modulators (SERMs)
CPT/HCPCS: 71045; 80048; 80076; 82077; 83735; 85025; 96374; 96375; 99285; J0616; J2060; J2765